=== PATIENT | male | born 1965 | race Two or more races ===

== ENCOUNTER 2018-10-05 22:43 | Inpatient (IN) | payer OTHER ==
[~2018-10-05] VITALS: Ht 188 cm; Wt 237.2 kg
[2018-10-06] VITALS (7 sets, daily range): BP systolic 112–168; BP diastolic 63–96
--- NOTE | 2018-10-06 02:02 | RAD ---
CT head without contrast. CT cervical spine without contrast. PQRS statement: CT scans at this facility use dose reduction including either automated exposure control, iterative reconstructions, and /or weight based radiation dosing via mA and kV modification when appropriate to reduce radiation dose to as low as reasonably achievable. HISTORY: Head pain, neck pain, status post fall. TECHNIQUE: Noncontrast CT imaging of the head and cervical spine multiplanar reconstructions. CT head findings: No intracranial hemorrhage, mass, hydrocephalus or infarction. No acute ischemic changes. Right frontoparietal soft tissue swelling and a small 3 cm hematoma the vertex. Orbits, mastoids, paranasal sinuses and bones are unremarkable. IMPRESSION: No acute intracranial CT abnormality. Scalp hematoma. No skull fracture. CT cervical spine findings: Craniocervical junction intact. Cervical vertebral body height and alignment intact. There is an acute traumatic vertical oriented fracture of the anterior C2 vertebral body, no fracture of the dens. Separately there is a hairline acute traumatic fracture of the right C2 pedicle which disrupts the medial wall of the foramen transversarium without distraction, involvement of the foramen could increase the probability of a vertebral artery injury. Remainder of the cervical spine is intact. 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 Bridging anterior posterior thick cervical longitudinal ligament ossifications may be a combination of ankylosing spondylitis as well as ossification of the posterior longitudinal ligament and diffuse idiopathic skeletal hyperostosis, with multilevel severe spinal canal stenoses. Multilevel neural foraminal stenoses due to uncovertebral spurs also present. Lung apices and paraspinal tissues are unremarkable. IMPRESSION: Acute traumatic fracture of the C2 vertebra as described above. Critical results called to Dr. Olson at 1:55 AM October 06, 2018. Electronically signed by: Castillo Santos MD (10/06/2018 2:00 AM) [facility]
--- NOTE | 2018-10-06 02:07 | PHYS DOC ---
Past Medical History Past Medical History: DVT Past Surgical History: Cholecystectomy, Tonsillectomy Additional Past Surgical Histo: NECK Additional Information: Nonsmoker Alcohol Use: None Drug Use: None Adult General Chief Complaint Chief Complaint: MECHANICAL FALL HPI HPI 53 y/o male presents as transfer from [facility] in [place], [place] with report of need for CT head/cervical spine. Patient apparently had a mechanical slip and fall on his driveway at his home at noon. Reports striking his head and left knee. Reports developed some swelling and pain to top of his head. Reports concern given patient is currently on Xarelto for chronic RLE DVT. Patient denies LOC. Reports some neck pain which he attributes to known ankylosing spondylitis. Reports has been ambulatory without difficulty. Denies other injury. Patient was initially evaluated in the ED at [facility] and received a CXR without acute process. Patient was unable to receive CT imaging there as unable to accommodate patient's current weight. Patient sent to [facility] as he is an employee of [employer]. Patient elected to transfer by private vehicle. Patient was advised to wear a c -collar prior to transport which patient refused. Review of Systems Review of Systems Constitutional: Denies fever or chills [] Eyes: Denies change in visual acuity, redness, or eye pain [] HENT: Denies nasal congestion or epistaxis Respiratory: Denies cough or shortness of breath [] Cardiovascular: Reports some chest discomfort, denies palpitations GI: Denies abdominal pain, nausea, vomiting, or diarrhea [] : Denies dysuria or hematuria [] Musculoskeletal: Reports neck pain, denies back pain Integument: Reports head contusion, denies laceration Neurologic: Denies headache, focal weakness or sensory changes [] Complete systems were reviewed and found to be within normal limits, except as documented in this note. Current Medications Current Medications Current Medications Medications (Trade) Dose Ordered Sig/Cheng Start Time Stop Time Status Last Admin Dose Admin Acetaminophen/ Hydrocodone Bitart (Lortab 10/325) 1 tab 1X ONCE 10/06/18 02:15 10/06/18 02:16 UNV Fentanyl Citrate (Fentanyl 2ml Vial) 50 mcg PRN Q2HR PRN 10/06/18 02:45 Info (CONTRAST GIVEN -- Rx MONITORING) 1 each PRN DAILY PRN 10/06/18 04:45 10/08/18 04:44 Iohexol (Omnipaque 350 Mg/ml) 100 ml 1X ONCE 10/06/18 04:45 10/06/18 04:46 DC 10/06/18 05:20 100 ML Ondansetron HCl (Zofran) 4 mg PRN Q8HRS PRN 10/06/18 02:45 10/07/18 02:44 Sodium Chloride 1,000 ml @ 1,000 mls/hr 1X ONCE 10/06/18 02:45 10/06/18 03:44 DC 10/06/18 03:15 1,000 MLS/HR Allergies Allergies Allergies Coded Allergies Type Severity Reaction Last Updated Verified No Known Drug Allergies 10/05/18 No Physical Exam Physical Exam Constitutional: Well developed, well nourished, no acute distress, non-toxic appearance. [] HENT: Normocephalic, atraumatic, bilateral TMs normal, oropharynx moist, nose normal. [] Eyes: PERRL, EOMI, conjunctiva normal, no discharge. [] Neck: No midline tenderness, supple Cardiovascular: Heart rate regular rhythm, no murmur [] Lungs & Thorax: Bilateral breath sounds clear to auscultation [] Abdomen: Soft, no tenderness, pelvis stable and nontender Skin: Warm, dry, no erythema, contusion noted to top of scalp Back: No midline tenderness, no CVA tenderness. [] Extremities: No tenderness,, ROM intact, no edema. [] Neurologic: Alert and oriented X 3, normal motor function, normal sensory function, no focal deficits noted. [] Psychologic: Affect normal, judgement normal, mood normal. [] Current Patient Data Vital Signs Vital Signs Date Time Temp Pulse Resp B/P (MAP) Pulse Ox O2 Delivery O2 Flow Rate FiO2 10/06/18 03:14 20 99 Room Air 10/05/18 23:38 98.3 73 163/106 (125) 98.3 Lab Values Laboratory Tests Test 10/06/18 02:15 10/06/18 03:03 10/06/18 04:20 Urine Collection Type Unknown Urine Color Yellow Urine Clarity Clear Urine pH 6.0 Urine Specific Jackson 1.025 Urine Protein Negative mg/dL (NEG-TRACE) Urine Glucose (UA) Negative mg/dL (NEG) Urine Ketones (Stick) Negative mg/dL (NEG) Urine Blood Small (NEG) Urine Nitrite Negative (NEG) Urine Bilirubin Small (NEG) Urine Urobilinogen Dipstick 1.0 mg/dL (0.2 mg/dL) Urine Leukocyte Esterase Negative (NEG) Urine RBC 1-2 /HPF (0-2) Urine WBC Occ /HPF (0-4) Urine Squamous Epithelial Cells Occ /LPF Urine Bacteria 0 /HPF (0-FEW) Urine Mucus Mod /LPF White Blood Count 10.9 x10^3/uL (4.0-11.0) Red Blood Count 5.11 x10^6/uL (4.30-5.70) Hemoglobin 16.3 g/dL (13.0-17.5) Hematocrit 48.9 % (39.0-53.0) Mean Corpuscular Volume 96 fL (79-100) Mean Corpuscular Hemoglobin 32 pg (25-35) Mean Corpuscular Hemoglobin Concent 33 g/dL (31-37) Red Cell Distribution Width 13.9 % (11.5-14.5) Platelet Count 274 x10^3/uL (140-400) Neutrophils (%) (Auto) 75 % (31-73) H Lymphocytes (%) (Auto) 15 % (24-48) L Monocytes (%) (Auto) 8 % (0-9) Eosinophils (%) (Auto) 1 % (0-3) Basophils (%) (Auto) 1 % (0-3) Neutrophils # (Auto) 8.2 x10^3uL (1.8-7.7) H Lymphocytes # (Auto) 1.6 x10^3/uL (1.0-4.8) Monocytes # (Auto) 0.9 x10^3/uL (0.0-1.1) Eosinophils # (Auto) 0.1 x10^3/uL (0.0-0.7) Basophils # (Auto) 0.1 x10^3/uL (0.0-0.2) Prothrombin Time 14.2 SEC (11.7-14.0) H Prothrombin Time INR 1.1 (0.8-1.1) PTT 34 SEC (24-38) Sodium Level 140 mmol/L (136-145) Potassium Level 3.8 mmol/L (3.5-5.1) Chloride Level 104 mmol/L (98-107) Carbon Dioxide Level 28 mmol/L (21-32) Anion Gap 8 (6-14) Blood Urea Nitrogen 7 mg/dL (8-26) L Creatinine 1.0 mg/dL (0.7-1.3) Estimated GFR (Cockcroft-Gault) 78.5 BUN/Creatinine Ratio 7 (6-20) Glucose Level 108 mg/dL (70-99) H Calcium Level 8.9 mg/dL (8.5-10.1) Magnesium Level 2.0 mg/dL (1.8-2.4) Total Bilirubin 1.6 mg/dL (0.2-1.0) H Aspartate Amino Transferase (AST) 29 U/L (15-37) Alanine Aminotransferase (ALT) 28 U/L (16-63) Alkaline Phosphatase 130 U/L (46-116) H Total Protein 7.9 g/dL (6.4-8.2) Albumin 3.4 g/dL (3.4-5.0) Albumin/Globulin Ratio 0.8 (1.0-1.7) L Laboratory Tests 10/06/18 03:03 Laboratory Tests 10/06/18 04:20 EKG EKG @0642 NSR at 76bpm, NO ST elevation Radiology/Procedures Radiology/Procedures PROCEDURE: CT HEAD AND CERVICAL SPINE WO CT head without contrast. CT cervical spine without contrast. PQRS statement: CT scans at this facility use dose reduction including either automated exposure control, iterative reconstructions, and /or weight based radiation dosing via mA and kV modification when appropriate to reduce radiation dose to as low as reasonably achievable. HISTORY: Head pain, neck pain, status post fall. TECHNIQUE: Noncontrast CT imaging of the head and cervical spine multiplanar reconstructions. CT head findings: No intracranial hemorrhage, mass, hydrocephalus or infarction. No acute ischemic changes. Right frontoparietal soft tissue swelling and a small 3 cm hematoma the vertex. Orbits, mastoids, paranasal sinuses and bones are unremarkable. IMPRESSION: No acute intracranial CT abnormality. Scalp hematoma. No skull fracture. CT cervical spine findings: Craniocervical junction intact. Cervical vertebral body height and alignment intact. There is an acute traumatic vertical oriented fracture of the anterior C2 vertebral body, no fracture of the dens. Separately there is a hairline acute traumatic fracture of the right C2 pedicle which disrupts the medial wall of the foramen transversarium without distraction, involvement of the foramen could increase the probability of a vertebral artery injury. Remainder of the cervical spine is intact. 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 Bridging anterior posterior thick cervical longitudinal ligament ossifications may be a combination of ankylosing spondylitis as well as ossification of the posterior longitudinal ligament and diffuse idiopathic skeletal hyperostosis, with multilevel severe spinal canal stenoses. Multilevel neural foraminal stenoses due to uncovertebral spurs also present. Lung apices and paraspinal tissues are unremarkable. IMPRESSION: Acute traumatic fracture of the C2 vertebra as described above. Critical results called to Dr. Giron at 1:55 AM October 06, 2018. Electronically signed by: Castillo Santos MD (10/06/2018 2:00 AM) [facility] PROCEDURE: CT ANGIOGRAPHY HEAD AND NECK CT angiography head and neck with contrast HISTORY: C2 fracture with increased probability of right vertebral artery injury. PQRS statement: CT scans at this facility use dose reduction including either automated exposure control, iterative reconstructions, and /or weight based radiation dosing via mA and kV modification when appropriate to reduce radiation dose to as low as reasonably achievable. Stenosis calculations for CT, MR, and conventional angiography are based upon measurements of the distal ICA diameter in accordance with the NASCET methodology. Stenosis calculations for carotid ultrasound studies are derived from validated velocity criteria which are known to correlate with the NASCET methodology. TECHNIQUE: Helical CT imaging of the head and neck with 3-D MIP and volume reconstructions of the arteries characterize vascular anatomy and pathology with 100 mL Omnipaque 350 intravenous contrast. Neck findings: Common ostium of the left common carotid and innominate arteries from the aortic arch. Left vertebral artery is mildly dominant. No plaque, dissection, thrombosis, aneurysm, stenosis or occlusion of the vertebral arteries including the right vertebral artery is it crosses the C2 transverse foramen patent. Nondisplaced fracture. Retropharyngeal carotid arteries. Tiny calcified plaque left carotid bifurcation. No vessel irregularity, thrombus, dissection, aneurysm, stenosis or occlusion of the carotid arteries in the neck. C2 vertebral fracture again demonstrated. Intracranial findings: No plaque, vessel irregularity, thrombus, dissection, aneurysm, stenosis or occlusion. Scalp hematoma at the vertex and right frontal scalp soft tissue swelling again demonstrated. IMPRESSION: Essentially normal CT angiography head and neck. Specifically there is no vertebral artery dissection, aneurysm or thrombosis evident at the area of C2 cervical fracture. Electronically signed by: Castillo Santos MD (10/06/2018 5:59 AM) [facility] Course & Med Decision Making Course & Med Decision Making Pertinent Labs and Imaging studies reviewed. (See chart for details) Patient presents with report of mechanical trip and fall. Previously seen at [facility] in [place], [place] who initially evaluated the patient. Patient currently treated with Xarelto. Scalp hematoma noted. CT scanner table unable to accommodate patient's weight there. Patient transferred by private vehicle without C-collar due to patient refusal for collar and/or EMS transfer. CT head/cervical spine obtained with findings of C2 body fracture. C-collar placed. Discussed case with Dr. Machado (neurosurg ) who evaluated CT images. Requests CTA head/neck to evaluate for vertebral artery involvement. CTA without acute process. Patient requiring admission for further evaluation and treatment. Discussed with Dr. Mena (hospitalist) who is in agreement with admission. Dr. Mena requests consultation to (trauma surgery) who is in agreement with consultation. Discussed findings and plan with patient and family, who acknowledge understanding and agreement. Dragon Disclaimer Dragon Disclaimer This electronic medical record was generated, in whole or in part, using a voice recognition dictation system. Departure Departure Impression: Primary Impression: C2 cervical fracture Disposition: 09 ADMITTED INPATIENT Admitting Physician: Judah Vila Condition: GUARDED Referrals: UNKNOWN PCP NAME (PCP) Critical Care Time Critical care time was 30 minutes which includes time at bedside, spent in discussion of patient's care with specialists and/or family members, with interpretation of laboratory and/or radiological studies and is exclusive of procedures. Problem Qualifiers Primary Impression: C2 cervical fracture Encounter type: initial encounter Fracture type: closed Fracture morphology : unspecified fracture morphology Fracture alignment: nondisplaced Qualified Codes: S12.101A - Unspecified nondisplaced fracture of second cervical vertebra, initial encounter for closed fracture LEANDRA GIRON DO Oct 06, 2018 02:07
[2018-10-06] MEDS ORDERED: HYDROcodone/APAP 10/325 1 TAB TABLET PO ONE (02:15)
[2018-10-06] MEDS ORDERED: IV NORMAL SALINE 1000ML BAG 1,000 ML IV ONE ×2 (02:30→02:45)
[2018-10-06] MEDS ORDERED: fentaNYL PF VIAL 100 MCG/2 ML VIAL IV ONE (02:30)
[2018-10-06] MEDS ORDERED: ONDANSETRON PF 4 MG/2 ML VIAL. IV PRN ×2 (02:45→11:15)
[2018-10-06 02:57] LABS: BILIRUBIN,URINE SMALL (NEG); CLARITY,URINE CLEAR; COLOR,URINE YELLOW; NITRITE,URINE NEGATIVE (NEG); PROTEIN,URINE NEGATIVE (NEG-TRACE)
[2018-10-06 03:06] LABS: BACTERIA,URINE 0 /HPF (0-FEW); SQUAMOUS EPITHELIAL CELL,UR OCC /LPF; WBC,URINE OCC /HPF (0-4)
[2018-10-06 03:32] LABS: BASO # 0.1 x10^3/uL (0.0-0.2); BASO % 1 % (0-3); EOS # 0.1 x10^3/uL (0.0-0.7); EOS % 1 % (0-3); HEMATOCRIT 48.9 % (39.0-53.0); HEMOGLOBIN 16.3 g/dL (13.0-17.5); LYMPH # 1.6 x10^3/uL (1.0-4.8); LYMPH % 15 % (24-48); MEAN CORPUSCULAR HEMOGLOBIN 32 pg (25-35); MEAN CORPUSCULAR HGB CONC 33 g/dL (31-37); MEAN CORPUSCULAR VOLUME 96 fL (79-100); MONO # 0.9 x10^3/uL (0.0-1.1); MONO % 8 % (0-9); NEUT # 8.2 x10^3uL (1.8-7.7); NEUT % 75 % (31-73); PLATELET COUNT 274 x10^3/uL (140-400); RED BLOOD COUNT 5.11 x10^6/uL (4.30-5.70); RED CELL DISTRIBUTION WIDTH 13.9 % (11.5-14.5); WHITE BLOOD COUNT 10.9 x10^3/uL (4.0-11.0)
[2018-10-06 03:42] LABS: PROTHROMBIN TIME PATIENT 14.2 SEC (11.7-14.0)
[2018-10-06 04:36] LABS: CALCIUM 8.9 mg/dL (8.5-10.1); GFR 78.5; POTASSIUM 3.8 mmol/L (3.5-5.1)
[2018-10-06 04:41] LABS: ALBUMIN 3.4 g/dL (3.4-5.0); ALBUMIN/GLOBULIN RATIO 0.8 (1.0-1.7); TOTAL BILIRUBIN 1.6 mg/dL (0.2-1.0); TOTAL PROTEIN 7.9 g/dL (6.4-8.2)
[2018-10-06] MEDS ORDERED: IOHEXOL 350 MG/ML 100 ML VIAL. IV ONE (04:45)
[2018-10-06] MEDS ORDERED: CONTRAST GIVEN. MC PRN (04:45)
--- NOTE | 2018-10-06 06:02 | RAD ---
CT angiography head and neck with contrast HISTORY: C2 fracture with increased probability of right vertebral artery injury. PQRS statement: CT scans at this facility use dose reduction including either automated exposure control, iterative reconstructions, and /or weight based radiation dosing via mA and kV modification when appropriate to reduce radiation dose to as low as reasonably achievable. Stenosis calculations for CT, MR, and conventional angiography are based upon measurements of the distal ICA diameter in accordance with the NASCET methodology. Stenosis calculations for carotid ultrasound studies are derived from validated velocity criteria which are known to correlate with the NASCET methodology. TECHNIQUE: Helical CT imaging of the head and neck with 3-D MIP and volume reconstructions of the arteries characterize vascular anatomy and pathology with 100 mL Omnipaque 350 intravenous contrast. Neck findings: Common ostium of the left common carotid and innominate arteries from the aortic arch. Left vertebral artery is mildly dominant. No plaque, dissection, thrombosis, aneurysm, stenosis or occlusion of the vertebral arteries including the right vertebral artery is it crosses the C2 transverse foramen patent. Nondisplaced fracture. Retropharyngeal carotid arteries. Tiny calcified plaque left carotid bifurcation. No vessel irregularity, thrombus, dissection, aneurysm, stenosis or occlusion of the carotid arteries in the neck. C2 vertebral fracture again demonstrated. Intracranial findings: No plaque, vessel irregularity, thrombus, dissection, aneurysm, stenosis or occlusion. Scalp hematoma at the vertex and right frontal scalp soft tissue swelling again demonstrated. IMPRESSION: Essentially normal CT angiography head and neck. Specifically there is no vertebral artery dissection, aneurysm or thrombosis evident at the area of C2 cervical fracture. Electronically signed by: Castillo Santos MD (10/06/2018 5:59 AM) [facility]
[2018-10-06] MEDS: fentaNYL PF VIAL 100 MCG/2 ML VIAL IV PRN ×2 (07:39→13:01)
--- NOTE | 2018-10-06 10:01 | PDOC1 ---
History and Physical Date of Admission Date of Admission DATE: 10/06/18 TIME: 09:59 Identification/Chief Complaint Chief Complaint SEEN IN ER, Patient apparently had a mechanical slip and fall on his driveway at his home at noon 10/05 . Reports, falling forward striking his head on garage wall and left knee NO LOC . Reports developed some swelling and pain to top of his head. Reports concern given patient is currently on Xarelto for chronic RLE DVT IN 2017 . Reports neck pain which he attributed to known ankylosing spondylitis. has been ambulatory without difficulty. Denies other injury. 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 Patient was initially evaluated in the ED at [facility] and had a CXR without acute process. Patient was unable to have CT imaging there as unable to accommodate patient' s current weight > 500 lbs. Patient sent to [facility] here as he is an employee of [employer]. Past Medical History Past Medical History Past Medical History Past Medical History Past Medical History: DVT Past Surgical History: Cholecystectomy, Tonsillectomy Additional Past Surgical Histo: NECK Additional Information: Nonsmoker Alcohol Use: None Drug Use: None Pulmonary: No pertinent hx, Other (MCKENZIE) Heme/Onc: Other (DVT RIGHT LEG 2017 ON XARELTO) Hepatobiliary: No pertinent hx Psych: No pertinent hx Infectious disease: No pertinent hx Dermatology: Other (VENOUS INSUFF BOTH LOWER LEGS, CHRONIC) Family History Family History: Heart Disease, Hypertension Social History Smoke: No ALCOHOL: none Drugs: None Current Problem List Problem List Problems Medical Problems: (1) C2 cervical fracture Status: Acute Current Medications Current Medications Current Medications Acetaminophen/ Hydrocodone Bitart (Lortab 10/325) 1 tab 1X ONCE PO ; Start at 02:15; Stop 10/06/18 at 02:16; Status UNV Sodium Chloride 1,000 ml @ 100 mls/hr 1X ONCE IV Last administered on at 06:15; Start 10/06/18 at 02:30; Stop 10/06/18 at 12:29 Fentanyl Citrate (Fentanyl 2ml Vial) 50 mcg 1X ONCE IV Last administered on at 03:14; Start 10/06/18 at 02:30; Stop 10/06/18 at 02:32; Status DC Sodium Chloride 1,000 ml @ 1,000 mls/hr 1X ONCE IV Last administered on at 03:15; Start 10/06/18 at 02:45; Stop 10/06/18 at 03:44; Status DC Ondansetron HCl (Zofran) 4 mg PRN Q8HRS PRN IV NAUSEA/VOMITING; Start 10/06/18 at 02:45; Stop 10/07/18 at 02:44 Fentanyl Citrate (Fentanyl 2ml Vial) 50 mcg PRN Q2HR PRN IV PAIN Last administered on 10/06/18at 07:39; Start 10/06/18 at 02:45 Iohexol (Omnipaque 350 Mg/ml) 100 ml 1X ONCE IV Last administered on at 05:20; Start 10/06/18 at 04:45; Stop 10/06/18 at 04:46; Status DC Info (CONTRAST GIVEN -- Rx MONITORING) 1 each PRN DAILY PRN MC SEE COMMENTS; Start 10/06/18 at 04:45; Stop 10/08/18 at 04:44 Allergies Allergies: Coded Allergies: No Known Drug Allergies (Unverified , 10/05/18) ROS Review of System Review of Systems Review of Systems Constitutional: Denies fever or chills [] Eyes: Denies change in visual acuity, redness, or eye pain [] HENT: Denies nasal congestion or epistaxis Respiratory: Denies cough or shortness of breath [] Cardiovascular: Reports some chest discomfort WHEN HE FELL contusing his chest wall anterior aspect, denies palpitations GI: Denies abdominal pain, nausea, vomiting, or diarrhea [] : Denies dysuria or hematuria [] Musculoskeletal: Reports neck pain, denies back pain Integument: Reports head contusion, denies laceration Neurologic: Denies headache, focal weakness or sensory changes denies hx neuropathy, or falls Prior to this event [] 14 pt systems were reviewed and found to be within normal limits, except as documented Physical Exam Physical Exam Physical Exam Physical Exam Constitutional: Well developed, no acute distress, non-toxic appearance. [] HENT: Normocephalic, atraumatic, bilateral TMs normal, oropharynx moist, nose normal. [] Eyes: PERRL, EOMI, conjunctiva normal, no discharge. [] Neck: in collar Cardiovascular: Heart rate regular rhythm, no murmur [] Lungs & Thorax: Bilateral breath sounds clear to auscultation [] Abdomen: Soft, no tenderness, pelvis stable and nontender Skin: Warm, dry, no erythema, contusion noted to top of scalp Back: No midline tenderness, no CVA tenderness. [] Extremities: No tenderness,, ROM intact, no edema. [] Neurologic: Alert and oriented X 3, normal motor function, normal sensory function, no focal deficits noted. good equal contracts analyst bilaterally[] Psychologic: Affect normal, judgement normal, mood normal. [] General: Alert, Oriented X3, Cooperative Lungs: Clear to auscultation Heart: RRR Abdomen: Soft, Other (extreme obesity) Rectal Exam: not examined PELVIC: Examination not indicated Extremities: No cyanosis, Other (chronic venous insuff both lower legs) Neuro: Normal speech, Cranial nerves 3-12 NL Psych/Mental Status: Mental status NL, Mood NL Vitals Vitals Vital Signs Date Time Temp Pulse Resp B/P (MAP) Pulse Ox O2 Delivery O2 Flow Rate FiO2 10/06/18 08:09 18 10/06/18 07:41 82 100 10/06/18 03:14 Room Air 10/05/18 23:38 98.3 163/106 (125) 98.3 Labs Labs Laboratory Tests Test 10/06/18 02:15 10/06/18 03:03 10/06/18 04:20 10/06/18 04:30 Urine Collection Type Unknown Urine Color Yellow Urine Clarity Clear Urine pH 6.0 Urine Specific [place] 1.025 Urine Protein Negative mg/dL (NEG-TRACE) Urine Glucose (UA) Negative mg/dL (NEG) Urine Ketones (Stick) Negative mg/dL (NEG) Urine Blood Small (NEG) Urine Nitrite Negative (NEG) Urine Bilirubin Small (NEG) Urine Urobilinogen Dipstick 1.0 mg/dL (0.2 mg/dL) Urine Leukocyte Esterase Negative (NEG) Urine RBC 1-2 /HPF (0-2) Urine WBC Occ /HPF (0-4) Urine Squamous Epithelial Cells Occ /LPF Urine Bacteria 0 /HPF (0-FEW) Urine Mucus Mod /LPF White Blood Count 10.9 x10^3/uL (4.0-11.0) Red Blood Count 5.11 x10^6/uL (4.30-5.70) Hemoglobin 16.3 g/dL (13.0-17.5) Hematocrit 48.9 % (39.0-53.0) Mean Corpuscular Volume 96 fL (79-100) Mean Corpuscular Hemoglobin 32 pg (25-35) Mean Corpuscular Hemoglobin Concent 33 g/dL (31-37) Red Cell Distribution Width 13.9 % (11.5-14.5) Platelet Count 274 x10^3/uL (140-400) Neutrophils (%) (Auto) 75 % (31-73) Lymphocytes (%) (Auto) 15 % (24-48) Monocytes (%) (Auto) 8 % (0-9) Eosinophils (%) (Auto) 1 % (0-3) Basophils (%) (Auto) 1 % (0-3) Neutrophils # (Auto) 8.2 x10^3uL (1.8-7.7) Lymphocytes # (Auto) 1.6 x10^3/uL (1.0-4.8) Monocytes # (Auto) 0.9 x10^3/uL (0.0-1.1) Eosinophils # (Auto) 0.1 x10^3/uL (0.0-0.7) Basophils # (Auto) 0.1 x10^3/uL (0.0-0.2) Prothrombin Time 14.2 SEC (11.7-14.0) Prothromb Time International Ratio 1.1 (0.8-1.1) Activated Partial Thromboplast Time 34 SEC (24-38) Sodium Level 140 mmol/L (136-145) Potassium Level 3.8 mmol/L (3.5-5.1) Chloride Level 104 mmol/L (98-107) Carbon Dioxide Level 28 mmol/L (21-32) Anion Gap 8 (6-14) Blood Urea Nitrogen 7 mg/dL (8-26) Creatinine 1.0 mg/dL (0.7-1.3) Estimated GFR (Cockcroft-Gault) 78.5 BUN/Creatinine Ratio 7 (6-20) Glucose Level 108 mg/dL (70-99) Calcium Level 8.9 mg/dL (8.5-10.1) Magnesium Level 2.0 mg/dL (1.8-2.4) Total Bilirubin 1.6 mg/dL (0.2-1.0) Aspartate Amino Transf (AST/SGOT) 29 U/L (15-37) Alanine Aminotransferase (ALT/SGPT) 28 U/L (16-63) Alkaline Phosphatase 130 U/L (46-116) Total Protein 7.9 g/dL (6.4-8.2) Albumin 3.4 g/dL (3.4-5.0) Albumin/Globulin Ratio 0.8 (1.0-1.7) Creatine Kinase 593 U/L (39-308) Creatine Kinase MB (Mass) 3.5 ng/mL (0.0-3.6) Creatine Kinase MB Relative Index 0.6 % (0-4) Troponin I Quantitative < 0.017 ng/mL (0.000-0.055) Laboratory Tests Test 10/06/18 02:15 10/06/18 03:03 10/06/18 04:20 10/06/18 04:30 Urine Collection Type Unknown Urine Color Yellow Urine Clarity Clear Urine pH 6.0 Urine Specific [place] 1.025 Urine Protein Negative mg/dL (NEG-TRACE) Urine Glucose (UA) Negative mg/dL (NEG) Urine Ketones (Stick) Negative mg/dL (NEG) Urine Blood Small (NEG) Urine Nitrite Negative (NEG) Urine Bilirubin Small (NEG) Urine Urobilinogen Dipstick 1.0 mg/dL (0.2 mg/dL) Urine Leukocyte Esterase Negative (NEG) Urine RBC 1-2 /HPF (0-2) Urine WBC Occ /HPF (0-4) Urine Squamous Epithelial Cells Occ /LPF Urine Bacteria 0 /HPF (0-FEW) Urine Mucus Mod /LPF White Blood Count 10.9 x10^3/uL (4.0-11.0) Red Blood Count 5.11 x10^6/uL (4.30-5.70) Hemoglobin 16.3 g/dL (13.0-17.5) Hematocrit 48.9 % (39.0-53.0) Mean Corpuscular Volume 96 fL (79-100) Mean Corpuscular Hemoglobin 32 pg (25-35) Mean Corpuscular Hemoglobin Concent 33 g/dL (31-37) Red Cell Distribution Width 13.9 % (11.5-14.5) Platelet Count 274 x10^3/uL (140-400) Neutrophils (%) (Auto) 75 % (31-73) Lymphocytes (%) (Auto) 15 % (24-48) Monocytes (%) (Auto) 8 % (0-9) Eosinophils (%) (Auto) 1 % (0-3) Basophils (%) (Auto) 1 % (0-3) Neutrophils # (Auto) 8.2 x10^3uL (1.8-7.7) Lymphocytes # (Auto) 1.6 x10^3/uL (1.0-4.8) Monocytes # (Auto) 0.9 x10^3/uL (0.0-1.1) Eosinophils # (Auto) 0.1 x10^3/uL (0.0-0.7) Basophils # (Auto) 0.1 x10^3/uL (0.0-0.2) Prothrombin Time 14.2 SEC (11.7-14.0) Prothromb Time International Ratio 1.1 (0.8-1.1) Activated Partial Thromboplast Time 34 SEC (24-38) Sodium Level 140 mmol/L (136-145) Potassium Level 3.8 mmol/L (3.5-5.1) Chloride Level 104 mmol/L (98-107) Carbon Dioxide Level 28 mmol/L (21-32) Anion Gap 8 (6-14) Blood Urea Nitrogen 7 mg/dL (8-26) Creatinine 1.0 mg/dL (0.7-1.3) Estimated GFR (Cockcroft-Gault) 78.5 BUN/Creatinine Ratio 7 (6-20) Glucose Level 108 mg/dL (70-99) Calcium Level 8.9 mg/dL (8.5-10.1) Magnesium Level 2.0 mg/dL (1.8-2.4) Total Bilirubin 1.6 mg/dL (0.2-1.0) Aspartate Amino Transf (AST/SGOT) 29 U/L (15-37) Alanine Aminotransferase (ALT/SGPT) 28 U/L (16-63) Alkaline Phosphatase 130 U/L (46-116) Total Protein 7.9 g/dL (6.4-8.2) Albumin 3.4 g/dL (3.4-5.0) Albumin/Globulin Ratio 0.8 (1.0-1.7) Creatine Kinase 593 U/L (39-308) Creatine Kinase MB (Mass) 3.5 ng/mL (0.0-3.6) Creatine Kinase MB Relative Index 0.6 % (0-4) Troponin I Quantitative < 0.017 ng/mL (0.000-0.055) Images Images CT angiography head and neck with contrast HISTORY: C2 fracture with increased probability of right vertebral artery injury. PQRS statement: CT scans at this facility use dose reduction including either automated exposure control, iterative reconstructions, and /or weight based radiation dosing via mA and kV modification when appropriate to reduce radiation dose to as low as reasonably achievable. Stenosis calculations for CT, MR, and conventional angiography are based upon measurements of the distal ICA diameter in accordance with the NASCET methodology. Stenosis calculations for carotid ultrasound studies are derived from validated velocity criteria which are known to correlate with the NASCET methodology. TECHNIQUE: Helical CT imaging of the head and neck with 3-D MIP and volume reconstructions of the arteries characterize vascular anatomy and pathology with 100 mL Omnipaque 350 intravenous contrast. Neck findings: Common ostium of the left common carotid and innominate arteries from the aortic arch. Left vertebral artery is mildly dominant. No plaque, dissection, thrombosis, aneurysm, stenosis or occlusion of the vertebral arteries including the right vertebral artery is it crosses the C2 transverse foramen patent. Nondisplaced fracture. Retropharyngeal carotid arteries. Tiny calcified plaque left carotid bifurcation. No vessel irregularity, thrombus, dissection, aneurysm, stenosis or occlusion of the carotid arteries in the neck. C2 vertebral fracture again demonstrated. Intracranial findings: No plaque, vessel irregularity, thrombus, dissection, aneurysm, stenosis or occlusion. Scalp hematoma at the vertex and right frontal scalp soft tissue swelling again demonstrated. IMPRESSION: Essentially normal CT angiography head and neck. Specifically there is no vertebral artery dissection, aneurysm or thrombosis evident at the area of C2 cervical fracture. Electronically signed by: Janet Santos MD (10/06/2018 5:59 AM) [facility] DICTATED and SIGNED BY: JANET SANTOS MD DATE: 10/06/18 0559 STATUS: REG ER ORD. PHYSICIAN: LEANDRA GIRON DO REASON: head/neck pain s/p fall, hx of xarelto use PROCEDURE: CT HEAD AND CERVICAL SPINE WO CT head without contrast. CT cervical spine without contrast. PQRS statement: CT scans at this facility use dose reduction including either automated exposure control, iterative reconstructions, and /or weight based radiation dosing via mA and kV modification when appropriate to reduce radiation dose to as low as reasonably achievable. HISTORY: Head pain, neck pain, status post fall. TECHNIQUE: Noncontrast CT imaging of the head and cervical spine multiplanar reconstructions. CT head findings: No intracranial hemorrhage, mass, hydrocephalus or infarction. No acute ischemic changes. Right frontoparietal soft tissue swelling and a small 3 cm hematoma the vertex. Orbits, mastoids, paranasal sinuses and bones are unremarkable. IMPRESSION: No acute intracranial CT abnormality. Scalp hematoma. No skull fracture. CT cervical spine findings: Craniocervical junction intact. Cervical vertebral body height and alignment intact. There is an acute traumatic vertical oriented fracture of the anterior C2 vertebral body, no fracture of the dens. Separately there is a hairline acute traumatic fracture of the right C2 pedicle which disrupts the medial wall of the foramen transversarium without distraction, involvement of the foramen could increase the probability of a vertebral artery injury. Remainder of the cervical spine is intact. 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 Bridging anterior posterior thick cervical longitudinal ligament ossifications may be a combination of ankylosing spondylitis as well as ossification of the posterior longitudinal ligament and diffuse idiopathic skeletal hyperostosis, with multilevel severe spinal canal stenoses. Multilevel neural foraminal stenoses due to uncovertebral spurs also present. Lung apices and paraspinal tissues are unremarkable. IMPRESSION: Acute traumatic fracture of the C2 vertebra as described above. Critical results called to Dr. Giron at 1:55 AM October 06, 2018. Electronically signed by: Janet Santos MD (10/06/2018 2:00 AM) [facility] VTE Prophylaxis Ordered VTE Prophylaxis Devices: Contraindicated VTE Pharmacological Prophylaxi: Yes Assessment/Plan Assessment/Plan IMPRESSION: 1.Acute traumatic fracture of the C2 vertebra 2.normal CT angiography head and neck. Specifically there is no vertebral artery dissection, aneurysm or thrombosis evident at the area of C2 cervical fracture. No plaque, dissection, thrombosis, aneurysm, stenosis or occlusion of the vertebral arteries including the right vertebral artery is it crosses the C2 transverse foramen patent. Nondisplaced fracture. Retropharyngeal carotid arteries. Tiny calcified plaque left carotid bifurcation. No vessel irregularity, thrombus, dissection, aneurysm, stenosis or occlusion of the carotid arteries in the neck. C2 vertebral fracture again demonstrated. 3. ankylosing spondylitis as well as ossification of the posterior longitudinal ligament and diffuse idiopathic skeletal hyperostosis, with multilevel severe spinal canal stenoses. Multilevel neural foraminal stenoses due to uncovertebral spurs 4. extreme morbid obesity 5, hx DVT RIGHT LEG 2017 on xarelto 6. chest wall discomfort from acute fall 7. mild inc CPK, CHK Troponin i OK X 1 8. high fall risk 9. MCKENZIE 10. MILD Occiput contusion 11. hypertension, poor control plan 1. Consult neurosurgery 2. consult neurology 3. consult DR Collazo, trauma eval 4. neurochecks q 4 hrs 5. ICU BED 6. Ceiba collar 7. Bariatric bed 8. up with assist only 9. NPO until seen by neurosurgery today 10. ECHO 11. lisinopril 10 mg po now 12. hydralazine 10mg iv q 4 hrs prn bp support 37 min cc time LILLIAN LIU MD Oct 06, 2018 10:01
[2018-10-06] MEDS ORDERED: HYDROmorphone 2 MG/ML VIAL IV PRN (11:15)
[2018-10-06] MEDS ORDERED: guaiFENesin ORAL 200 MG/10 ML LIQUID. PO PRN (11:15)
[2018-10-06] MEDS ORDERED: ALBUTEROL SULFATE 2.5 MG/3 ML NEBU. NEB PRN (11:15)
[2018-10-06] MEDS ORDERED: ACETAMINOPHEN 325 MG TABLET. PO PRN (11:15)
[2018-10-06] MEDS ORDERED: 0.9 % SODIUM CHLORIDE 3ML DISP.SYRIN. IV PRN (11:15)
[2018-10-06] MEDS ORDERED: MAG HYDROX/ALUMINUM HYD/SIMETH 30 ML ORAL.SUSP PO PRN (11:15)
[2018-10-06] MEDS ORDERED: LORazepam 0.5 MG TABLET PO PRN (11:15)
[2018-10-06] MEDS ORDERED: hydrALAZINE 20 MG/ML VIAL. IVP PRN (11:15)
[2018-10-06] MEDS ORDERED: cloNIDine HCL 0.1 MG TABLET PO PRN (11:15)
[2018-10-06] MEDS ORDERED: LISINOPRIL 10 MG TABLET PO ONE (11:30)
--- NOTE | 2018-10-06 11:48 | PDOC2 ---
CONSULT Date of Consult Date of Consult DATE: 10/06/18 TIME: 11:40 History of Present Illness Reason for Visit: The patient is a 53 year old male who yesterday experienced a fall while in the garage. He was at standing height and fell forward striking the top portion of his head on a wagon wheel. He denies loss of consciousness, and felt that he momentarily "had the wind knocked out of me". After the fall he noticed pain in his head and neck. He did notice some chest discomfort as well which has improved. He reported to [facility] but was transferred to [facility] as the CT scanner was able to accommodate his weight. He is currently in a neck collar and has no other significant complaints. Past Medical History Pulmonary: No pertinent hx, Other (MCKENZIE) Heme/Onc: Other (DVT RIGHT LEG 2017 ON XARELTO) Hepatobiliary: No pertinent hx Psych: No pertinent hx Infectious disease: No pertinent hx Dermatology: Other (VENOUS INSUFF BOTH LOWER LEGS, CHRONIC) Past Surgical History Past Surgical History lap brian, tonsillectomy, plastic surgery on posterior neck Family History Family History: Heart Disease, Hypertension Social History No ALCOHOL: none Drugs: None Current Problem List Problem List Problems Medical Problems: (1) C2 cervical fracture Status: Acute Current Medications Current Medications Current Medications Acetaminophen/ Hydrocodone Bitart (Lortab 10/325) 1 tab 1X ONCE PO ; Start at 02:15; Stop 10/06/18 at 02:16; Status UNV Sodium Chloride 1,000 ml @ 100 mls/hr 1X ONCE IV Last administered on at 06:15; Start 10/06/18 at 02:30; Stop 10/06/18 at 12:29 Fentanyl Citrate (Fentanyl 2ml Vial) 50 mcg 1X ONCE IV Last administered on at 03:14; Start 10/06/18 at 02:30; Stop 10/06/18 at 02:32; Status DC Sodium Chloride 1,000 ml @ 1,000 mls/hr 1X ONCE IV Last administered on at 03:15; Start 10/06/18 at 02:45; Stop 10/06/18 at 03:44; Status DC Ondansetron HCl (Zofran) 4 mg PRN Q8HRS PRN IV NAUSEA/VOMITING; Start 10/06/18 at 02:45; Stop 10/07/18 at 02:44 Fentanyl Citrate (Fentanyl 2ml Vial) 50 mcg PRN Q2HR PRN IV PAIN Last administered on 10/06/18at 07:39; Start 10/06/18 at 02:45 Iohexol (Omnipaque 350 Mg/ml) 100 ml 1X ONCE IV Last administered on at 05:20; Start 10/06/18 at 04:45; Stop 10/06/18 at 04:46; Status DC Info (CONTRAST GIVEN -- Rx MONITORING) 1 each PRN DAILY PRN MC SEE COMMENTS; Start 10/06/18 at 04:45; Stop 10/08/18 at 04:44 Sodium Chloride (Normal Saline Flush 3ml) 3 ml QSHIFT PRN IV AFTER MEDS AND BLOOD DRAWS; Start 10/06/18 at 11:15 Sodium Chloride 1,000 ml @ 100 mls/hr Q10H IV ; Start 10/06/18 at 11:05 Ondansetron HCl (Zofran) 4 mg PRN Q4HRS PRN IV NAUSEA/VOMITING; Start 10/06/18 at 11:15 Acetaminophen (Tylenol) 650 mg PRN Q4HRS PRN PO TEMP OVER 100.4F OR MILD PAIN; Start 10/06/18 at 11:15 Al Hydroxide/Mg Hydroxide (Mylanta Plus Xs) 30 ml PRN DAILY PRN PO HEARTBURN / GAS; Start 10/06/18 at 11:15 Clonidine HCl (Catapres) 0.1 mg PRN Q6HRS PRN PO SBP>160 OR DBP>90; Start 10/06 at 11:15 Docusate Sodium (Colace) 100 mg PRN BID PRN PO CONSTIPATION; Start 10/06/18 at 11:15 Albuterol Sulfate (Ventolin Neb Soln) 2.5 mg PRN Q4HRS PRN NEB SHORTNESS OF BREATH; Start 10/06/18 at 11:15 Guaifenesin (Robitussin) 200 mg PRN Q4HRS PRN PO COUGH; Start 10/06/18 at 11:15 Lorazepam (Ativan) 0.5 mg PRN Q4HRS PRN PO ANXIETY / AGITATION; Start 10/06/18 at 11:15 Hydromorphone HCl (Dilaudid) 1 mg PRN Q2HRS PRN IV SEVERE PAIN; Start 10/06/18 at 11:15 Hydralazine HCl (Apresoline Inj) 10 mg PRN Q4HRS PRN IVP ELEVATED BP, SEE COMMENTS; Start 10/06/18 at 11:15 Lisinopril (Prinivil) 10 mg DAILY PO ; Start 10/07/18 at 09:00 Lisinopril (Prinivil) 10 mg 1X ONCE PO ; Start 10/06/18 at 11:30; Stop at 11:31; Status DC Allergies Allergies: Coded Allergies: No Known Drug Allergies (Unverified , 10/05/18) ROS General: No: Chills, Night Sweats, Fatigue, Malaise, Appetite, Other PSYCHOLOGICAL ROS: No: Anxiety, Behavioral Disorder, Concentration difficultie , Decreased libido, Depression, Disorientation, Hallucinations, Hostility, Irritablity, Memory difficulties, Mood Swings, Obsessive thoughts, Physical abuse, Sexual abuse, Sleep disturbances, Suicidal ideation, Other Eyes: No Blurry vision, No Decreased vision, No Double vision, No Dry eyes, No Excessive tearing, No Eye Pain, No Itchy Eyes, No Loss of vision, No Photophobia , No Scotomata, No Uses contacts, No Uses glasses, No Other HEENT: YES: Other (pain on top of head) ALLERGY AND IMMUNOLOGY: No: Hives, Insect Bite Sensitivity, Itchy/Watery Eyes, Nasal Congestion, Post Nasal Drip, Seasonal Allergies, Other Hematological and Lymphatic: No: Bleeding Problems, Blood Clots, Blood Transfusions, Brusing, Night Sweats, Pallor, Swollen Lymph Nodes, Other ENDOCRINE: No: Breast Changes, Galactorrhea, Hair Pattern Changes, Hot Flashes , Malaise/lethargy, Mood Swings, Palpitations, Polydipsia/polyuria, Skin Changes , Temperature Intolerance, Unexpected Weight Changes, Other Cardiovascular: yes Chest Pain (mild, improved) Gastrointestinal: No Nausea, No Vomiting, No Abdominal Pain, No Diarrhea, No Constipation, No Melena, No Hematochezia, No Other Genitourinary: No Dysuria, No Frequency, No Incontinence, No Hematuria, No Retention, No Discharge, No Urgency, No Pain, No Flank Pain, No Other, No , No , No , No , No , No , No Musculoskeletal: No Gait Disturbance, No Joint Pain, No Joint Stiffness, No Joint Swelling, No Muscle Pain, No Muscular Weakness, No Pain In:, No Swelling In:, No Other Neurological: No Behavorial Changes, No Bowel/Bladder ControlChng, No Confusion , No Dizziness, No Gait Disturbance, No Headaches, No Impaired Coord/balance, No Memory Loss, No Numbness/Tingling, No Seizures, No Speech Problems, No Tremors, No Visual Changes, No Weakness, No Other Skin: No Dry Skin, No Eczema, No Hair Changes, No Lumps, No Mole Changes, No Mottling, No Nail Changes, No Pruritus, No Rash, No Skin Lesion Changes, No Other, No Acne Physical Exam General: Alert, Oriented X3, Cooperative, No acute distress HEENT: Other (in collar, small scalp abrasion with hematoma, no laceration) Lungs: Clear to auscultation Heart: Regular rate Abdomen: Soft (super morbidly obese), No tenderness Extremities: Other (venous stasis change both lower legs) Skin: No rashes, No breakdown Neuro: Normal speech Psych/Mental Status: Mental status NL MUSCULOSKELETAL: No deformity Vitals VITALS Vital Signs Date Time Temp Pulse Resp B/P (MAP) Pulse Ox O2 Delivery O2 Flow Rate FiO2 10/06/18 08:09 18 10/06/18 07:41 82 100 10/06/18 03:14 Room Air 10/05/18 23:38 98.3 163/106 (125) 98.3 Labs Labs Laboratory Tests Test 10/06/18 02:15 10/06/18 03:03 10/06/18 04:20 10/06/18 04:30 Urine Collection Type Unknown Urine Color Yellow Urine Clarity Clear Urine pH 6.0 Urine Specific [place] 1.025 Urine Protein Negative mg/dL (NEG-TRACE) Urine Glucose (UA) Negative mg/dL (NEG) Urine Ketones (Stick) Negative mg/dL (NEG) Urine Blood Small (NEG) Urine Nitrite Negative (NEG) Urine Bilirubin Small (NEG) Urine Urobilinogen Dipstick 1.0 mg/dL (0.2 mg/dL) Urine Leukocyte Esterase Negative (NEG) Urine RBC 1-2 /HPF (0-2) Urine WBC Occ /HPF (0-4) Urine Squamous Epithelial Cells Occ /LPF Urine Bacteria 0 /HPF (0-FEW) Urine Mucus Mod /LPF White Blood Count 10.9 x10^3/uL (4.0-11.0) Red Blood Count 5.11 x10^6/uL (4.30-5.70) Hemoglobin 16.3 g/dL (13.0-17.5) Hematocrit 48.9 % (39.0-53.0) Mean Corpuscular Volume 96 fL (79-100) Mean Corpuscular Hemoglobin 32 pg (25-35) Mean Corpuscular Hemoglobin Concent 33 g/dL (31-37) Red Cell Distribution Width 13.9 % (11.5-14.5) Platelet Count 274 x10^3/uL (140-400) Neutrophils (%) (Auto) 75 % (31-73) Lymphocytes (%) (Auto) 15 % (24-48) Monocytes (%) (Auto) 8 % (0-9) Eosinophils (%) (Auto) 1 % (0-3) Basophils (%) (Auto) 1 % (0-3) Neutrophils # (Auto) 8.2 x10^3uL (1.8-7.7) Lymphocytes # (Auto) 1.6 x10^3/uL (1.0-4.8) Monocytes # (Auto) 0.9 x10^3/uL (0.0-1.1) Eosinophils # (Auto) 0.1 x10^3/uL (0.0-0.7) Basophils # (Auto) 0.1 x10^3/uL (0.0-0.2) Prothrombin Time 14.2 SEC (11.7-14.0) Prothromb Time International Ratio 1.1 (0.8-1.1) Activated Partial Thromboplast Time 34 SEC (24-38) Sodium Level 140 mmol/L (136-145) Potassium Level 3.8 mmol/L (3.5-5.1) Chloride Level 104 mmol/L (98-107) Carbon Dioxide Level 28 mmol/L (21-32) Anion Gap 8 (6-14) Blood Urea Nitrogen 7 mg/dL (8-26) Creatinine 1.0 mg/dL (0.7-1.3) Estimated GFR (Cockcroft-Gault) 78.5 BUN/Creatinine Ratio 7 (6-20) Glucose Level 108 mg/dL (70-99) Calcium Level 8.9 mg/dL (8.5-10.1) Magnesium Level 2.0 mg/dL (1.8-2.4) Total Bilirubin 1.6 mg/dL (0.2-1.0) Aspartate Amino Transf (AST/SGOT) 29 U/L (15-37) Alanine Aminotransferase (ALT/SGPT) 28 U/L (16-63) Alkaline Phosphatase 130 U/L (46-116) Total Protein 7.9 g/dL (6.4-8.2) Albumin 3.4 g/dL (3.4-5.0) Albumin/Globulin Ratio 0.8 (1.0-1.7) Creatine Kinase 593 U/L (39-308) Creatine Kinase MB (Mass) 3.5 ng/mL (0.0-3.6) Creatine Kinase MB Relative Index 0.6 % (0-4) Troponin I Quantitative < 0.017 ng/mL (0.000-0.055) Laboratory Tests Test 10/06/18 02:15 10/06/18 03:03 10/06/18 04:20 10/06/18 04:30 Urine Collection Type Unknown Urine Color Yellow Urine Clarity Clear Urine pH 6.0 Urine Specific [place] 1.025 Urine Protein Negative mg/dL (NEG-TRACE) Urine Glucose (UA) Negative mg/dL (NEG) Urine Ketones (Stick) Negative mg/dL (NEG) Urine Blood Small (NEG) Urine Nitrite Negative (NEG) Urine Bilirubin Small (NEG) Urine Urobilinogen Dipstick 1.0 mg/dL (0.2 mg/dL) Urine Leukocyte Esterase Negative (NEG) Urine RBC 1-2 /HPF (0-2) Urine WBC Occ /HPF (0-4) Urine Squamous Epithelial Cells Occ /LPF Urine Bacteria 0 /HPF (0-FEW) Urine Mucus Mod /LPF White Blood Count 10.9 x10^3/uL (4.0-11.0) Red Blood Count 5.11 x10^6/uL (4.30-5.70) Hemoglobin 16.3 g/dL (13.0-17.5) Hematocrit 48.9 % (39.0-53.0) Mean Corpuscular Volume 96 fL (79-100) Mean Corpuscular Hemoglobin 32 pg (25-35) Mean Corpuscular Hemoglobin Concent 33 g/dL (31-37) Red Cell Distribution Width 13.9 % (11.5-14.5) Platelet Count 274 x10^3/uL (140-400) Neutrophils (%) (Auto) 75 % (31-73) Lymphocytes (%) (Auto) 15 % (24-48) Monocytes (%) (Auto) 8 % (0-9) Eosinophils (%) (Auto) 1 % (0-3) Basophils (%) (Auto) 1 % (0-3) Neutrophils # (Auto) 8.2 x10^3uL (1.8-7.7) Lymphocytes # (Auto) 1.6 x10^3/uL (1.0-4.8) Monocytes # (Auto) 0.9 x10^3/uL (0.0-1.1) Eosinophils # (Auto) 0.1 x10^3/uL (0.0-0.7) Basophils # (Auto) 0.1 x10^3/uL (0.0-0.2) Prothrombin Time 14.2 SEC (11.7-14.0) Prothromb Time International Ratio 1.1 (0.8-1.1) Activated Partial Thromboplast Time 34 SEC (24-38) Sodium Level 140 mmol/L (136-145) Potassium Level 3.8 mmol/L (3.5-5.1) Chloride Level 104 mmol/L (98-107) Carbon Dioxide Level 28 mmol/L (21-32) Anion Gap 8 (6-14) Blood Urea Nitrogen 7 mg/dL (8-26) Creatinine 1.0 mg/dL (0.7-1.3) Estimated GFR (Cockcroft-Gault) 78.5 BUN/Creatinine Ratio 7 (6-20) Glucose Level 108 mg/dL (70-99) Calcium Level 8.9 mg/dL (8.5-10.1) Magnesium Level 2.0 mg/dL (1.8-2.4) Total Bilirubin 1.6 mg/dL (0.2-1.0) Aspartate Amino Transf (AST/SGOT) 29 U/L (15-37) Alanine Aminotransferase (ALT/SGPT) 28 U/L (16-63) Alkaline Phosphatase 130 U/L (46-116) Total Protein 7.9 g/dL (6.4-8.2) Albumin 3.4 g/dL (3.4-5.0) Albumin/Globulin Ratio 0.8 (1.0-1.7) Creatine Kinase 593 U/L (39-308) Creatine Kinase MB (Mass) 3.5 ng/mL (0.0-3.6) Creatine Kinase MB Relative Index 0.6 % (0-4) Troponin I Quantitative < 0.017 ng/mL (0.000-0.055) Assessment/Plan Assessment/Plan 53 year old male S/P fall, C2 fx, scalp hematoma. Labs and Xrays reviewed; The patient is in a hard collar and was seen by Dr Machado. Evidently no surgery is necessary for the C2 injury. No other signs of trauma, expect scalp hematoma to resolve. Will sign off, please call if needed in the future. VERO MORENO MD Oct 06, 2018 11:48
[2018-10-06] MEDS: IV NORMAL SALINE 1000ML BAG 1,000 ML IV SCH (13:01)
[2018-10-06] MEDS ORDERED: CELE200C PO (13:25)
[2018-10-06] MEDS ORDERED: RIVA20TA2 PO (13:25)
[2018-10-06] MEDS ORDERED: CHOL10003 PO (13:25)
[2018-10-06] MEDS ORDERED: ANTI-COAG MONITOR BY PHARMACY. MC PRN (13:45)
[2018-10-06] MEDS: CYCLOBENZAPRINE 10 MG TABLET. PO PRN (14:10)
[2018-10-06] MEDS: HYDROcodone/APAP 5/325MG 1 TAB TABLET PO PRN (14:11)
--- NOTE | 2018-10-06 14:12 | EKG ---
[facility] [address] [place] [address] Test Date: 2018-10-06 Test Time: 06:42:52 Pat Name: JONATHAN BREWER Department: Room: 116 1 Gender: M [employer]: ELKE : 1965 Requested By: LEANDRA GIRON Order Number: [id number] Reading MD: Joseph Mayo MD Measurements Intervals [place] Rate: 76 P: 26 [place]: 164 QRS: 0 QRSD: 88 T: 24 QT: 384 QTc: 436 Interpretive Statements SINUS RHYTHM Electronically Signed On 10-09-2018 12:22:19 CDT by Joseph Mayo MD
--- NOTE | 2018-10-06 14:59 | PDOC2 ---
NEUROLOGY CONSULT Date of Admission Date of Admission DATE: 10/06/18 TIME: 14:43 Reason for Consult Reason for Consult: IMPRESSION: C2 fracture. Scalp hematoma. Fall. HTN. Elevated total bilirubin level. Right LE DVT, chronic, on Xarelto. Morbid obesity, BMI 67. RECOMMENDATIONS/PLAN: Consulted NS and Surgery. Treat medical diseases. 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 He had a fall on 10/05/18 who was reportedly at standing position and fell forward striking the top portion of his head on a wagon wheel. He denies loss of consciousness, and felt that he momentarily "had the wind knocked out of me". He got up by himself feeling mild pain in his head and neck, but he continued physical activity for about 7-8 hours. Due to concerns of ICH because he has been on Xarelto, so he eventually went to [facility] searching medical attention. He was transferred to [facility] as the CT scanner was unable to accommodate his weight in [facility]. He was revealed C2 fracture and scalp hematoma, but no ICH, SAH, or SDH. He is currently in a neck collar and has no other significant complaints. Past Medical History Pulmonary: No pertinent hx, Other (MCKENZIE) Heme/Onc: Other (DVT RIGHT LEG 2017 ON XARELTO) Hepatobiliary: No pertinent hx Psych: No pertinent hx Infectious disease: No pertinent hx Dermatology: Other (VENOUS INSUFF BOTH LOWER LEGS, CHRONIC) Past Surgical History Lap brian, tonsillectomy, plastic surgery on posterior neck Family History Heart Disease, Hypertension Social History ALCOHOL: none Drugs: None ALLERGY: Unknown MEDICATIONS: Refer to [facility] REVIEW OF SYSTEMS: Constitutional: Morbid obesity. Head: head soft tissue injury this time. Skin: No rash. Ear: No infection, tinnitus. Eyes: No vision loss or color blindness. Nose: No bleeding or purulent discharges. Hearing: No hearing decrease. Neck: C2 fracture this time. Cardiac: HTN, HLD. Pulmonary: No pneumonia, COPD. GI: No GI ulcer, GI bleeding. Urinary/genital: No dysuria, incontinence, urinary retention. Endocrinologic: Morbid obesity. Skeletomuscular: No muscular atrophy, deformity. Neurological: see HP. Psychiatric: Denies drug use/abuse. Otherwise, not [id number] review of systems. PHYSICAL EXAMINATION: General appearance is in subacute distress. HEENT: Normocephalic and nontraumatic. Eyes, nose, ears, and throat are unremarkable. Neck is supple. No lymphadenopathy. No bruits are heard over the carotid artery. No crepitus. Cardiovascular: S1, S2, regular rate and rhythm. Pulmonary: Clear to auscultation bilaterally. Abdomen: Bowel sounds are positive. Abdomen is soft, nontender, and nondistended. Extremities: No rash, lesions. No restriction of range of motion NEUROLOGICAL EXAMINATION: Alert Oriented to time, place and person. PERRL. EOMI. CN: no focal findings. Muscle tone: within normal. Muscle strength: 5- DTR: 0-1 due to obesity. Plantar reflex: Flexor response bilaterally Gait: not examined in bed. Sensory exam: no abnormal findings. No cerebellar signs elicited. F-T-N test fine. Current Medications Current Medications Current Medications Acetaminophen/ Hydrocodone Bitart (Lortab 10/325) 1 tab 1X ONCE PO ; Start at 02:15; Stop 10/06/18 at 02:16; Status UNV Sodium Chloride 1,000 ml @ 100 mls/hr 1X ONCE IV Last administered on at 06:15; Start 10/06/18 at 02:30; Stop 10/06/18 at 12:29; Status DC Fentanyl Citrate (Fentanyl 2ml Vial) 50 mcg 1X ONCE IV Last administered on at 03:14; Start 10/06/18 at 02:30; Stop 10/06/18 at 02:32; Status DC Sodium Chloride 1,000 ml @ 1,000 mls/hr 1X ONCE IV Last administered on at 03:15; Start 10/06/18 at 02:45; Stop 10/06/18 at 03:44; Status DC Ondansetron HCl (Zofran) 4 mg PRN Q8HRS PRN IV NAUSEA/VOMITING; Start 10/06/18 at 02:45; Stop 10/07/18 at 02:44 Fentanyl Citrate (Fentanyl 2ml Vial) 50 mcg PRN Q2HR PRN IV PAIN Last administered on 10/06/18at 13:01; Start 10/06/18 at 02:45 Iohexol (Omnipaque 350 Mg/ml) 100 ml 1X ONCE IV Last administered on at 05:20; Start 10/06/18 at 04:45; Stop 10/06/18 at 04:46; Status DC Info (CONTRAST GIVEN -- Rx MONITORING) 1 each PRN DAILY PRN MC SEE COMMENTS; Start 10/06/18 at 04:45; Stop 10/08/18 at 04:44 Sodium Chloride (Normal Saline Flush 3ml) 3 ml QSHIFT PRN IV AFTER MEDS AND BLOOD DRAWS; Start 10/06/18 at 11:15 Sodium Chloride 1,000 ml @ 100 mls/hr Q10H IV Last administered on 10/06/18at 13:01; Start 10/06/18 at 11:05 Ondansetron HCl (Zofran) 4 mg PRN Q4HRS PRN IV NAUSEA/VOMITING; Start 10/06/18 at 11:15 Acetaminophen (Tylenol) 650 mg PRN Q4HRS PRN PO TEMP OVER 100.4F OR MILD PAIN; Start 10/06/18 at 11:15 Al Hydroxide/Mg Hydroxide (Mylanta Plus Xs) 30 ml PRN DAILY PRN PO HEARTBURN / GAS; Start 10/06/18 at 11:15 Clonidine HCl (Catapres) 0.1 mg PRN Q6HRS PRN PO SBP>160 OR DBP>90; Start 10/06 at 11:15 Docusate Sodium (Colace) 100 mg PRN BID PRN PO CONSTIPATION; Start 10/06/18 at 11:15 Albuterol Sulfate (Ventolin Neb Soln) 2.5 mg PRN Q4HRS PRN NEB SHORTNESS OF BREATH; Start 10/06/18 at 11:15 Guaifenesin (Robitussin) 200 mg PRN Q4HRS PRN PO COUGH; Start 10/06/18 at 11:15 Lorazepam (Ativan) 0.5 mg PRN Q4HRS PRN PO ANXIETY / AGITATION; Start 10/06/18 at 11:15 Hydromorphone HCl (Dilaudid) 1 mg PRN Q2HRS PRN IV SEVERE PAIN; Start 10/06/18 at 11:15 Hydralazine HCl (Apresoline Inj) 10 mg PRN Q4HRS PRN IVP ELEVATED BP, SEE COMMENTS; Start 10/06/18 at 11:15 Lisinopril (Prinivil) 10 mg DAILY PO ; Start 10/07/18 at 09:00 Lisinopril (Prinivil) 10 mg 1X ONCE PO Last administered on 10/06/18at 13:02; Start 10/06/18 at 11:30; Stop 10/06/18 at 11:31; Status DC Cyclobenzaprine HCl (Flexeril) 10 mg PRN Q12HR PRN PO MUSCLE SPASMS Last administered on 10/06/18at 14:10; Start 10/06/18 at 13:30 Acetaminophen/ Hydrocodone Bitart (Lortab 5/325) 1 tab PRN Q4HRS PRN PO MODERATE-SEVERE PAIN Last administered on 10/06/18at 14:11; Start 10/06/18 at 13: 30 Vitamin D (Vitamin D3) 2,000 unit DAILY PO ; Start 10/07/18 at 09:00 Celecoxib (CeleBREX) 200 mg BID PO ; Start 10/06/18 at 21:00 Rivaroxaban (Xarelto) 20 mg DAILYWSUP PO ; Start 10/06/18 at 17:00 Info (Anti-Coagulation Monitoring By Pharmacy) 1 each PRN DAILY PRN MC SEE COMMENTS; Start 10/06/18 at 13:45 Active Scripts Active Reported Celebrex (Celecoxib) 200 Mg Capsule 200 Mg PO BID 30 Days Xarelto (Rivaroxaban) 20 Mg Tablet 20 Mg PO DAILY Vitamin D3 (Cholecalciferol (Vitamin D3)) 1,000 Unit Tablet 2,000 Unit PO DAILY Allergies Allergies: Allergies Coded Allergies Type Severity Reaction Last Updated Verified No Known Drug Allergies 10/05/18 No ROS Review of System The patient denies any associated fevers, chills, headache, ear pain, rhinorrhea , sore throat, stiff neck, productive cough, chest pain, shortness of breath, back or flank pain, abdominal pain, nausea, vomiting, diarrhea, constipation, dysuria, rash, numbness, weakness, tingling, incontinence, difficulty ambulating, or diaphoresis. Physical Exam Physical Exam General: Well developed, well nourished, no acute distress, well appearing HEENT: Pupils equally round and reactive to light, EOMI, no discharge, normal conjunctiva Neck: Supple, no nuchal rigidity, no JVD, trachea midline, no tenderness Cardiac: RRR, no murmurs, no gallops, no rubs Chest/Lungs: CTAB, no wheeze, no rhonchi, no crackles Abdomen: soft, non-distended, no guarding, no peritoneal signs, non-tender Back: No tenderness Extremities: no edema, pulses intact, non-tender,capillary refill <3 sec bilateral upper and lower extremities, Neuro: Alert and oriented x 4, no focal deficits, normal speech Vitals Vitals: Vital Signs Date Time Temp Pulse Resp B/P (MAP) Pulse Ox O2 Delivery O2 Flow Rate FiO2 10/06/18 13:02 75 10/06/18 08:09 18 10/06/18 07:41 100 10/06/18 03:14 Room Air 10/05/18 23:38 98.3 163/106 (125) 98.3 Labs Labs Laboratory Tests Test 10/06/18 02:15 10/06/18 03:03 10/06/18 04:20 10/06/18 04:30 Urine Collection Type Unknown Urine Color Yellow Urine Clarity Clear Urine pH 6.0 Urine Specific [place] 1.025 Urine Protein Negative mg/dL (NEG-TRACE) Urine Glucose (UA) Negative mg/dL (NEG) Urine Ketones (Stick) Negative mg/dL (NEG) Urine Blood Small (NEG) Urine Nitrite Negative (NEG) Urine Bilirubin Small (NEG) Urine Urobilinogen Dipstick 1.0 mg/dL (0.2 mg/dL) Urine Leukocyte Esterase Negative (NEG) Urine RBC 1-2 /HPF (0-2) Urine WBC Occ /HPF (0-4) Urine Squamous Epithelial Cells Occ /LPF Urine Bacteria 0 /HPF (0-FEW) Urine Mucus Mod /LPF White Blood Count 10.9 x10^3/uL (4.0-11.0) Red Blood Count 5.11 x10^6/uL (4.30-5.70) Hemoglobin 16.3 g/dL (13.0-17.5) Hematocrit 48.9 % (39.0-53.0) Mean Corpuscular Volume 96 fL (79-100) Mean Corpuscular Hemoglobin 32 pg (25-35) Mean Corpuscular Hemoglobin Concent 33 g/dL (31-37) Red Cell Distribution Width 13.9 % (11.5-14.5) Platelet Count 274 x10^3/uL (140-400) Neutrophils (%) (Auto) 75 % (31-73) Lymphocytes (%) (Auto) 15 % (24-48) Monocytes (%) (Auto) 8 % (0-9) Eosinophils (%) (Auto) 1 % (0-3) Basophils (%) (Auto) 1 % (0-3) Neutrophils # (Auto) 8.2 x10^3uL (1.8-7.7) Lymphocytes # (Auto) 1.6 x10^3/uL (1.0-4.8) Monocytes # (Auto) 0.9 x10^3/uL (0.0-1.1) Eosinophils # (Auto) 0.1 x10^3/uL (0.0-0.7) Basophils # (Auto) 0.1 x10^3/uL (0.0-0.2) Prothrombin Time 14.2 SEC (11.7-14.0) Prothromb Time International Ratio 1.1 (0.8-1.1) Activated Partial Thromboplast Time 34 SEC (24-38) Sodium Level 140 mmol/L (136-145) Potassium Level 3.8 mmol/L (3.5-5.1) Chloride Level 104 mmol/L (98-107) Carbon Dioxide Level 28 mmol/L (21-32) Anion Gap 8 (6-14) Blood Urea Nitrogen 7 mg/dL (8-26) Creatinine 1.0 mg/dL (0.7-1.3) Estimated GFR (Cockcroft-Gault) 78.5 BUN/Creatinine Ratio 7 (6-20) Glucose Level 108 mg/dL (70-99) Calcium Level 8.9 mg/dL (8.5-10.1) Magnesium Level 2.0 mg/dL (1.8-2.4) Total Bilirubin 1.6 mg/dL (0.2-1.0) Aspartate Amino Transf (AST/SGOT) 29 U/L (15-37) Alanine Aminotransferase (ALT/SGPT) 28 U/L (16-63) Alkaline Phosphatase 130 U/L (46-116) Total Protein 7.9 g/dL (6.4-8.2) Albumin 3.4 g/dL (3.4-5.0) Albumin/Globulin Ratio 0.8 (1.0-1.7) Creatine Kinase 593 U/L (39-308) Creatine Kinase MB (Mass) 3.5 ng/mL (0.0-3.6) Creatine Kinase MB Relative Index 0.6 % (0-4) Troponin I Quantitative < 0.017 ng/mL (0.000-0.055) Laboratory Tests Test 10/06/18 02:15 10/06/18 03:03 10/06/18 04:20 10/06/18 04:30 Urine Collection Type Unknown Urine Color Yellow Urine Clarity Clear Urine pH 6.0 Urine Specific [place] 1.025 Urine Protein Negative mg/dL (NEG-TRACE) Urine Glucose (UA) Negative mg/dL (NEG) Urine Ketones (Stick) Negative mg/dL (NEG) Urine Blood Small (NEG) Urine Nitrite Negative (NEG) Urine Bilirubin Small (NEG) Urine Urobilinogen Dipstick 1.0 mg/dL (0.2 mg/dL) Urine Leukocyte Esterase Negative (NEG) Urine RBC 1-2 /HPF (0-2) Urine WBC Occ /HPF (0-4) Urine Squamous Epithelial Cells Occ /LPF Urine Bacteria 0 /HPF (0-FEW) Urine Mucus Mod /LPF White Blood Count 10.9 x10^3/uL (4.0-11.0) Red Blood Count 5.11 x10^6/uL (4.30-5.70) Hemoglobin 16.3 g/dL (13.0-17.5) Hematocrit 48.9 % (39.0-53.0) Mean Corpuscular Volume 96 fL (79-100) Mean Corpuscular Hemoglobin 32 pg (25-35) Mean Corpuscular Hemoglobin Concent 33 g/dL (31-37) Red Cell Distribution Width 13.9 % (11.5-14.5) Platelet Count 274 x10^3/uL (140-400) Neutrophils (%) (Auto) 75 % (31-73) Lymphocytes (%) (Auto) 15 % (24-48) Monocytes (%) (Auto) 8 % (0-9) Eosinophils (%) (Auto) 1 % (0-3) Basophils (%) (Auto) 1 % (0-3) Neutrophils # (Auto) 8.2 x10^3uL (1.8-7.7) Lymphocytes # (Auto) 1.6 x10^3/uL (1.0-4.8) Monocytes # (Auto) 0.9 x10^3/uL (0.0-1.1) Eosinophils # (Auto) 0.1 x10^3/uL (0.0-0.7) Basophils # (Auto) 0.1 x10^3/uL (0.0-0.2) Prothrombin Time 14.2 SEC (11.7-14.0) Prothromb Time International Ratio 1.1 (0.8-1.1) Activated Partial Thromboplast Time 34 SEC (24-38) Sodium Level 140 mmol/L (136-145) Potassium Level 3.8 mmol/L (3.5-5.1) Chloride Level 104 mmol/L (98-107) Carbon Dioxide Level 28 mmol/L (21-32) Anion Gap 8 (6-14) Blood Urea Nitrogen 7 mg/dL (8-26) Creatinine 1.0 mg/dL (0.7-1.3) Estimated GFR (Cockcroft-Gault) 78.5 BUN/Creatinine Ratio 7 (6-20) Glucose Level 108 mg/dL (70-99) Calcium Level 8.9 mg/dL (8.5-10.1) Magnesium Level 2.0 mg/dL (1.8-2.4) Total Bilirubin 1.6 mg/dL (0.2-1.0) Aspartate Amino Transf (AST/SGOT) 29 U/L (15-37) Alanine Aminotransferase (ALT/SGPT) 28 U/L (16-63) Alkaline Phosphatase 130 U/L (46-116) Total Protein 7.9 g/dL (6.4-8.2) Albumin 3.4 g/dL (3.4-5.0) Albumin/Globulin Ratio 0.8 (1.0-1.7) Creatine Kinase 593 U/L (39-308) Creatine Kinase MB (Mass) 3.5 ng/mL (0.0-3.6) Creatine Kinase MB Relative Index 0.6 % (0-4) Troponin I Quantitative < 0.017 ng/mL (0.000-0.055) CLIFTON DUCKWORTH MD Oct 06, 2018 14:59
[2018-10-06] MEDS: RIVAROXABAN 10 MG TABLET. PO SCH (17:09)
--- NOTE | 2018-10-06 17:31 | CONS ---
DATE OF CONSULTATION: 10/06/2018 REASON FOR CONSULTATION: Hypertension. HISTORY OF PRESENT ILLNESS: The patient is a pleasant 53-year-old male with a past medical history of DVT, PE and on anticoagulation, who presented to the hospital at [place] in the setting of a fall, head contusion. He was diagnosed with a scalp hematoma and was transferred actually to [place] due to the CT scanner at [place] is not working well. He was diagnosed with a C2 vertebral issue which apparently is being treated with nonoperative manner and he is in a neck collar. Cardiology was asked to comment on his blood pressures. The patient does not have any blood pressure issues. He currently is in pain related to his neck collar. Denies any syncope, palpitations, orthopnea, PND or lower extremity edema. PAST MEDICAL HISTORY: As noted above, includes DVT, PE history. SOCIAL HISTORY: No alcohol, tobacco or illicit drug use. 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 ALLERGIES: No known drug allergies. CURRENT CARDIOVASCULAR MEDICATIONS: 1. Rivaroxaban 20 mg daily. 2. Lisinopril 10 mg daily, which was started at this admission for elevated blood pressures. REVIEW OF SYSTEMS: Negative for 10 out of 14 systems reviewed, unless otherwise mentioned above in HPI. PHYSICAL EXAMINATION: VITAL SIGNS: Afebrile, blood pressure 117/80, pulse ox 96% on room air. GENERAL: He is alert and oriented, no acute distress. HEAD AND NECK: Unremarkable. CARDIAC: Regular rhythm without murmurs, rubs, gallops. LUNGS: Clear to auscultation bilaterally. ABDOMEN: Soft, nontender, nondistended. EXTREMITIES: Without any clubbing, cyanosis, but does have chronic venous stasis changes and trace pitting edema. NEUROLOGIC: No focal deficits. MUSCULOSKELETAL: Right scalp hematoma noted. DIAGNOSTIC STUDIES: Cardiac enzymes, creatinine, platelets, hemoglobin are within normal limits. EKG is grossly unremarkable. IMPRESSION: 1. Mild hypertension, likely in the setting of acute distress without prior history. 2. Falls secondary to mechanical issue. No obvious cardiac pathology. 3. Morbid obesity. 4. Obstructive sleep apnea. RECOMMENDATIONS: 1. Continue current medical therapy. No further cardiac evaluation necessary. 2. I discussed with him about chronic obesity and possible consideration of gastric bypass and cardiac risk stratification an outpatient basis. Thank you for this consultation. RICK ESCALONA MD DR: Ahsan JOB#: [id number] / [id number]
[2018-10-06] MEDS: CELECOXIB 100 MG CAPSULE. PO SCH (20:27)
[2018-10-07] VITALS (7 sets, daily range): BP systolic 104–157; BP diastolic 50–102
[2018-10-07] MEDS: fentaNYL PF VIAL 100 MCG/2 ML VIAL IV PRN (01:05)
[2018-10-07] MEDS: HYDROcodone/APAP 5/325MG 1 TAB TABLET PO PRN ×3 (01:05→22:01)
[2018-10-07] MEDS: IV NORMAL SALINE 1000ML BAG 1,000 ML IV SCH ×3 (01:06→17:05)
[2018-10-07] MEDS: DOCUSATE SODIUM 100 MG CAPSULE. PO PRN ×3 (01:08→22:01)
--- NOTE | 2018-10-07 05:37 | CONS ---
DATE OF CONSULTATION: 10/06/2018 ATTENDING PHYSICIAN: Dr. Mena. The patient was seen at the request of Dr. Mena for rehab evaluation. 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 The patient had a mechanical fall on 10/05/2018 at his home on the driveway. He reports falling forward and striking his head on the garage wall and left knee without any loss of consciousness. The patient is getting around at home, he noted some swelling on top of his head and he is on Xarelto for chronic right lower extremity deep venous thrombosis since 2017. He had some neck pain, which he attributes to his known ankylosing spondylitis. The patient is concerned about any significant hemorrhage in the brain area, so he was seen in the Emergency Room at [employer] where he works and chest x-ray failed to reveal any acute abnormality. They could not accommodate CT because of his obesity, being more than 500 pounds weight. He was seen in the Emergency Room this morning where he had CT scan of the brain and cervical spine, which revealed no intracranial hemorrhage or mass lesion or hydrocephalus or infarction or no acute ischemic changes, right frontoparietal soft tissue swelling and a small 3 cm hematoma of the vertex. Orbits, mastoid, paranasal sinuses and bones are unremarkable. CT of the cervical spine revealed acute traumatic fracture of C2 vertebral body vertically oriented of the anterior C2 vertebral body without any fracture of the dens, also hairline acute traumatic fracture of right C2 pedicle, which disrupts medial wall of the foramen transversarium without distraction, involvement of the foramen could increase the probability of vertebral artery injury. Remainder of cervical spine examination is intact. Chronic nonunion right posterior rib fracture with sclerotic bony margins, bridging anterior, posterior thick cervical longitudinal ligament ossification may be a combination of ankylosing spondylitis as well as ossification of the posterior longitudinal ligament and diffuse idiopathic skeletal hyperostosis with multilevel severe spinal canal stenosis, multilevel neural foraminal stenosis due to uncovertebral spur also present. The patient had CTA of head and neck, which failed to reveal any evidence of vertebral artery dissection, aneurysm or thrombosis evident at the area of C2 cervical fracture. The patient denies any neck pain or headache or any trouble with swallowing, speech or bowel or bladder control or any numbness, tingling sensation or weakness in his extremities. He denies any difficulty with his vision. PHYSICAL EXAMINATION: Today revealed a middle-aged male, patient is obese. He is alert, oriented to time, place, person and circumstance and cooperated during the examination. He had [place] soft cervical collar in place. He moves all 4 extremities voluntarily where he had 5/5 grade muscle strength and deep tendon reflexes are 1+ and symmetrical and he had equal perception of touch and pinprick sensation bilaterally. He had crepitus on range of motion of knee joint with mild knee joint effusion, painful range of motion on both hip joints. He had evidence of chronic venous insufficiency of distal parts of both legs with some discoloration of the skin. No calf tenderness noted. The patient has per nursing staff; he is independent with bed mobility, transfers, and walking. ASSESSMENT: 1. C2 vertebral fracture from mechanical fall, onset 10/05/2018 in a patient with ankylosing spondylitis of cervical vertebrae with some degree of central spinal and neural foraminal compromise, but no clinical evidence of cervical radiculopathy. 2. Degenerative joint disease of the knees. 3. Chronic venous insufficiency of both lower extremities. 4. Obesity. RECOMMENDATIONS: To get him up as tolerated. Agree with the plans for getting him new neck brace and hopefully home with outpatient followup when medically stable in the next day or so. Dr. Mena, I appreciate asking me to participate in the care of this interesting patient. I will be glad to follow him with you as needed for the rehabilitation. GIORGIO BELTRAN MD DR: COSTA/sukhdeep JOB#: [id number] / [id number]
--- NOTE | 2018-10-07 09:34 | PDOC ---
PROGRESS NOTES History of Present Illness History of Present Illness Assessment/Plan Assessment/Plan IMPRESSION: 1.Acute traumatic fracture of the C2 vertebra 2.normal CT angiography head and neck. Specifically there is no vertebral artery dissection, aneurysm or thrombosis evident at the area of C2 cervical fracture. No plaque, dissection, thrombosis, aneurysm, stenosis or occlusion of the vertebral arteries including the right vertebral artery is it crosses the C2 transverse foramen patent. Nondisplaced fracture. Retropharyngeal carotid arteries. Tiny calcified plaque left carotid bifurcation. No vessel irregularity, thrombus, dissection, aneurysm, stenosis or occlusion of the carotid arteries in the neck. C2 vertebral fracture again demonstrated. 3. ankylosing spondylitis as well as ossification of the posterior longitudinal ligament and diffuse idiopathic skeletal hyperostosis, with multilevel severe spinal canal stenoses. Multilevel neural foraminal stenoses due to uncovertebral spurs 4. extreme morbid obesity 5, hx DVT RIGHT LEG 2017 on xarelto 6. chest wall discomfort from acute fall 7. mild inc CPK, CHK Troponin i OK X 1 8. high fall risk 9. MCKENZIE 10. MILD Occiput contusion 11. hypertension, LABILE plan 1. Consult neurosurgery 2. consult neurology 3. consult DR Collazo, trauma eval 4. neurochecks q 4 hrs 5. ICU BED 6. [place] collar 7. Bariatric bed 8. up with assist only 9. CARDIAC DIET 10. ECHO TODAY 11. lisinopril 10 mg po DAILY 12. hydralazine 10mg iv q 4 hrs prn bp support 42 min PT EXAM, CHART REVIEW, PT CARE COORDINATION Vitals Vitals Vital Signs Date Time Temp Pulse Resp B/P (MAP) Pulse Ox O2 Delivery O2 Flow Rate FiO2 10/07/18 07:00 98.2 80 20 146/85 (105) 96 Room Air 98.2 Physical Exam General: Alert, Oriented X3, Cooperative, No acute distress, mild distress Heart: Regular rate Lungs: Clear Abdomen: Soft (super morbidly obese), No tenderness Extremities: No cyanosis, Other (venous stasis change both lower legs) Skin: No rashes, No breakdown Assessment and Plan Assessmemt and Plan Problems Medical Problems: (1) C2 cervical fracture Status: Acute Comment Review of Relevant I have reviewed the following items rich (where applicable) has been applied. Labs Laboratory Tests Test 10/06/18 02:15 10/06/18 03:03 10/06/18 04:20 10/06/18 04:30 Urine Collection Type Unknown Urine Color Yellow Urine Clarity Clear Urine pH 6.0 Urine Specific [place] 1.025 Urine Protein Negative mg/dL (NEG-TRACE) Urine Glucose (UA) Negative mg/dL (NEG) Urine Ketones (Stick) Negative mg/dL (NEG) Urine Blood Small (NEG) Urine Nitrite Negative (NEG) Urine Bilirubin Small (NEG) Urine Urobilinogen Dipstick 1.0 mg/dL (0.2 mg/dL) Urine Leukocyte Esterase Negative (NEG) Urine RBC 1-2 /HPF (0-2) Urine WBC Occ /HPF (0-4) Urine Squamous Epithelial Cells Occ /LPF Urine Bacteria 0 /HPF (0-FEW) Urine Mucus Mod /LPF White Blood Count 10.9 x10^3/uL (4.0-11.0) Red Blood Count 5.11 x10^6/uL (4.30-5.70) Hemoglobin 16.3 g/dL (13.0-17.5) Hematocrit 48.9 % (39.0-53.0) Mean Corpuscular Volume 96 fL (79-100) Mean Corpuscular Hemoglobin 32 pg (25-35) Mean Corpuscular Hemoglobin Concent 33 g/dL (31-37) Red Cell Distribution Width 13.9 % (11.5-14.5) Platelet Count 274 x10^3/uL (140-400) Neutrophils (%) (Auto) 75 % (31-73) Lymphocytes (%) (Auto) 15 % (24-48) Monocytes (%) (Auto) 8 % (0-9) Eosinophils (%) (Auto) 1 % (0-3) Basophils (%) (Auto) 1 % (0-3) Neutrophils # (Auto) 8.2 x10^3uL (1.8-7.7) Lymphocytes # (Auto) 1.6 x10^3/uL (1.0-4.8) Monocytes # (Auto) 0.9 x10^3/uL (0.0-1.1) Eosinophils # (Auto) 0.1 x10^3/uL (0.0-0.7) Basophils # (Auto) 0.1 x10^3/uL (0.0-0.2) Prothrombin Time 14.2 SEC (11.7-14.0) Prothromb Time International Ratio 1.1 (0.8-1.1) Activated Partial Thromboplast Time 34 SEC (24-38) Sodium Level 140 mmol/L (136-145) Potassium Level 3.8 mmol/L (3.5-5.1) Chloride Level 104 mmol/L (98-107) Carbon Dioxide Level 28 mmol/L (21-32) Anion Gap 8 (6-14) Blood Urea Nitrogen 7 mg/dL (8-26) Creatinine 1.0 mg/dL (0.7-1.3) Estimated GFR (Cockcroft-Gault) 78.5 BUN/Creatinine Ratio 7 (6-20) Glucose Level 108 mg/dL (70-99) Calcium Level 8.9 mg/dL (8.5-10.1) Magnesium Level 2.0 mg/dL (1.8-2.4) Total Bilirubin 1.6 mg/dL (0.2-1.0) Aspartate Amino Transf (AST/SGOT) 29 U/L (15-37) Alanine Aminotransferase (ALT/SGPT) 28 U/L (16-63) Alkaline Phosphatase 130 U/L (46-116) Total Protein 7.9 g/dL (6.4-8.2) Albumin 3.4 g/dL (3.4-5.0) Albumin/Globulin Ratio 0.8 (1.0-1.7) Creatine Kinase 593 U/L (39-308) Creatine Kinase MB (Mass) 3.5 ng/mL (0.0-3.6) Creatine Kinase MB Relative Index 0.6 % (0-4) Troponin I Quantitative < 0.017 ng/mL (0.000-0.055) Medications Current Medications Acetaminophen/ Hydrocodone Bitart (Lortab 10/325) 1 tab 1X ONCE PO ; Start at 02:15; Stop 10/06/18 at 02:16; Status UNV Sodium Chloride 1,000 ml @ 100 mls/hr 1X ONCE IV Last administered on at 06:15; Start 10/06/18 at 02:30; Stop 10/06/18 at 12:29; Status DC Fentanyl Citrate (Fentanyl 2ml Vial) 50 mcg 1X ONCE IV Last administered on at 03:14; Start 10/06/18 at 02:30; Stop 10/06/18 at 02:32; Status DC Sodium Chloride 1,000 ml @ 1,000 mls/hr 1X ONCE IV Last administered on at 03:15; Start 10/06/18 at 02:45; Stop 10/06/18 at 03:44; Status DC Ondansetron HCl (Zofran) 4 mg PRN Q8HRS PRN IV NAUSEA/VOMITING; Start 10/06/18 at 02:45; Stop 10/07/18 at 02:44; Status DC Fentanyl Citrate (Fentanyl 2ml Vial) 50 mcg PRN Q2HR PRN IV PAIN Last administered on 10/07/18at 01:05; Start 10/06/18 at 02:45 Iohexol (Omnipaque 350 Mg/ml) 100 ml 1X ONCE IV Last administered on at 05:20; Start 10/06/18 at 04:45; Stop 10/06/18 at 04:46; Status DC Info (CONTRAST GIVEN -- Rx MONITORING) 1 each PRN DAILY PRN MC SEE COMMENTS; Start 10/06/18 at 04:45; Stop 10/08/18 at 04:44 Sodium Chloride (Normal Saline Flush 3ml) 3 ml QSHIFT PRN IV AFTER MEDS AND BLOOD DRAWS; Start 10/06/18 at 11:15 Sodium Chloride 1,000 ml @ 100 mls/hr Q10H IV Last administered on 10/07/18at 01:06; Start 10/06/18 at 11:05 Ondansetron HCl (Zofran) 4 mg PRN Q4HRS PRN IV NAUSEA/VOMITING; Start 10/06/18 at 11:15 Acetaminophen (Tylenol) 650 mg PRN Q4HRS PRN PO TEMP OVER 100.4F OR MILD PAIN; Start 10/06/18 at 11:15 Al Hydroxide/Mg Hydroxide (Mylanta Plus Xs) 30 ml PRN DAILY PRN PO HEARTBURN / GAS; Start 10/06/18 at 11:15 Clonidine HCl (Catapres) 0.1 mg PRN Q6HRS PRN PO SBP>160 OR DBP>90; Start 10/06 at 11:15 Docusate Sodium (Colace) 100 mg PRN BID PRN PO CONSTIPATION Last administered on 10/07/18at 01:08; Start 10/06/18 at 11:15 Albuterol Sulfate (Ventolin Neb Soln) 2.5 mg PRN Q4HRS PRN NEB SHORTNESS OF BREATH; Start 10/06/18 at 11:15 Guaifenesin (Robitussin) 200 mg PRN Q4HRS PRN PO COUGH; Start 10/06/18 at 11:15 Lorazepam (Ativan) 0.5 mg PRN Q4HRS PRN PO ANXIETY / AGITATION; Start 10/06/18 at 11:15 Hydromorphone HCl (Dilaudid) 1 mg PRN Q2HRS PRN IV SEVERE PAIN; Start 10/06/18 at 11:15 Hydralazine HCl (Apresoline Inj) 10 mg PRN Q4HRS PRN IVP ELEVATED BP, SEE COMMENTS; Start 10/06/18 at 11:15 Lisinopril (Prinivil) 10 mg DAILY PO ; Start 10/07/18 at 09:00 Lisinopril (Prinivil) 10 mg 1X ONCE PO Last administered on 10/06/18at 13:02; Start 10/06/18 at 11:30; Stop 10/06/18 at 11:31; Status DC Cyclobenzaprine HCl (Flexeril) 10 mg PRN Q12HR PRN PO MUSCLE SPASMS Last administered on 10/06/18at 14:10; Start 10/06/18 at 13:30 Acetaminophen/ Hydrocodone Bitart (Lortab 5/325) 1 tab PRN Q4HRS PRN PO MODERATE-SEVERE PAIN Last administered on 10/07/18at 01:05; Start 10/06/18 at 13: 30 Vitamin D (Vitamin D3) 2,000 unit DAILY PO ; Start 10/07/18 at 09:00 Celecoxib (CeleBREX) 200 mg BID PO Last administered on 10/06/18at 20:27; Start 10/06/18 at 21:00 Rivaroxaban (Xarelto) 20 mg DAILYWSUP PO Last administered on 10/06/18at 17:09; Start 10/06/18 at 17:00 Info (Anti-Coagulation Monitoring By Pharmacy) 1 each PRN DAILY PRN MC SEE COMMENTS; Start 10/06/18 at 13:45 Active Scripts Active Reported Celebrex (Celecoxib) 200 Mg Capsule 200 Mg PO BID 30 Days Xarelto (Rivaroxaban) 20 Mg Tablet 20 Mg PO DAILY Vitamin D3 (Cholecalciferol (Vitamin D3)) 1,000 Unit Tablet 2,000 Unit PO DAILY Vitals/I & O Vital Sign - Last 24 Hours 10/06/18 10/06/18 10/06/18 10/06/18 10:30 11:30 12:30 13:02 Temp 98.5 98.5 Pulse 82 80 77 75 B/P (MAP) 168/95 (119) 140/84 (102) 149/96 (113) Pulse Ox 96 O2 Delivery Room Air 10/06/18 10/06/18 10/06/18 10/06/18 13:30 14:30 15:12 15:12 Pulse 80 72 B/P (MAP) 143/89 (107) 117/80 (92) Pulse Ox 96 O2 Delivery Room Air Room Air 10/06/18 10/06/18 10/06/18 10/07/18 19:40 20:25 23:16 01:05 Temp 98.4 98.2 98.4 98.2 Pulse 80 63 Resp 16 16 22 B/P (MAP) 125/63 (83) 112/74 (87) Pulse Ox 94 98 O2 Delivery Room Air Room Air BiPAP/CPAP Room Air 10/07/18 10/07/18 10/07/18 01:05 03:54 07:00 Temp 97.5 98.2 97.5 98.2 Pulse 67 80 Resp 22 16 20 B/P (MAP) 137/95 (109) 146/85 (105) Pulse Ox 95 96 O2 Delivery Room Air BiPAP/CPAP Room Air Intake and Output 10/06/18 10/06/18 10/07/18 14:59 22:59 06:59 Intake Total 620 ml 460 ml 1760 ml Balance 620 ml 460 ml 1760 ml LILLIAN LIU MD Oct 07, 2018 09:34
[2018-10-07] MEDS: LISINOPRIL 10 MG TABLET PO SCH (10:31)
[2018-10-07] MEDS: CELECOXIB 100 MG CAPSULE. PO SCH ×2 (10:31→22:01)
[2018-10-07] MEDS: CHOLECALCIFEROL (VITAMIN D3) 1,000 UNIT TABLET PO SCH (10:32)
[2018-10-07] MEDS: CYCLOBENZAPRINE 10 MG TABLET. PO PRN ×2 (10:32→22:02)
--- NOTE | 2018-10-07 11:34 | RAD ---
2 view C-spine HISTORY: Follow-up C2 fracture Limited portable 2 view AP and crosstable lateral view C-spine There is poor visualization of the C-spine due to overlying neck brace. The C2 and C3 vertebral bodies appear aligned. The fracture of the C2 vertebral body seen in the October 06, 2018 CT is not seen. IMPRESSION: Limited 2 view C-spine shows no displacement of the C2 vertebral body. Clinical correlation is suggested. Electronically signed by: Champ Crane III, MD (10/07/2018 11:31 AM) [id number]
--- NOTE | 2018-10-07 12:29 | PDOC ---
PROGRESS NOTES Assessment Assessment C2 fracture. Scalp hematoma. Fall. HTN. Elevated total bilirubin level. Right LE DVT, chronic, on Xarelto. Morbid obesity, BMI 67. RECOMMENDATIONS/PLAN: Consulted NS and Surgery. Treat medical diseases. Weight reduction. OT/PT. 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. He had a fall on 10/05/18 who was reportedly at standing position and fell forward striking the top portion of his head on a wagon wheel. He denies loss of consciousness, and felt that he momentarily "had the wind knocked out of me". He got up by himself feeling mild pain in his head and neck, but he continued physical activity for about 7-8 hours. Due to concerns of ICH because he has been on Xarelto, so he eventually went to [facility] searching medical attention. He was transferred to [facility] as the CT scanner was unable to accommodate his weight in [facility]. He was revealed C2 fracture and scalp hematoma, but no ICH, SAH, or SDH. He is currently in a neck collar and has no other significant complaints. Past Medical History Pulmonary: No pertinent hx, Other (MCKENZIE) Heme/Onc: Other (DVT RIGHT LEG 2017 ON XARELTO) Hepatobiliary: No pertinent hx Psych: No pertinent hx Infectious disease: No pertinent hx Dermatology: Other (VENOUS INSUFF BOTH LOWER LEGS, CHRONIC) Past Surgical History Lap brian, tonsillectomy, plastic surgery on posterior neck Family History Heart Disease, Hypertension Social History ALCOHOL: none Drugs: None ALLERGY: Unknown MEDICATIONS: Refer to MAR REVIEW OF SYSTEMS: Constitutional: Morbid obesity. Head: head soft tissue injury this time. Skin: No rash. Ear: No infection, tinnitus. Eyes: No vision loss or color blindness. Nose: No bleeding or purulent discharges. Hearing: No hearing decrease. Neck: C2 fracture this time. Cardiac: HTN, HLD. Pulmonary: No pneumonia, COPD. GI: No GI ulcer, GI bleeding. Urinary/genital: No dysuria, incontinence, urinary retention. Endocrinologic: Morbid obesity. Skeletomuscular: No muscular atrophy, deformity. Neurological: see HP. Psychiatric: Denies drug use/abuse. Otherwise, not [id number] review of systems. PHYSICAL EXAMINATION: General appearance is in subacute distress. HEENT: Normocephalic and nontraumatic. Eyes, nose, ears, and throat are unremarkable. Neck is supple. No lymphadenopathy. No bruits are heard over the carotid artery. No crepitus. Cardiovascular: S1, S2, regular rate and rhythm. Pulmonary: Clear to auscultation bilaterally. Abdomen: Bowel sounds are positive. Abdomen is soft, nontender, and nondistended. Extremities: No rash, lesions. No restriction of range of motion NEUROLOGICAL EXAMINATION: Alert Oriented to time, place and person. PERRL. EOMI. CN: no focal findings. Muscle tone: within normal. Muscle strength: 5 DTR: 0-1 due to obesity. Plantar reflex: Flexor response bilaterally Gait: at his baseline normal. Sensory exam: no abnormal findings. No cerebellar signs elicited. F-T-N test fine. Objective Objective Vital Signs Date Time Temp Pulse Resp B/P (MAP) Pulse Ox O2 Delivery O2 Flow Rate FiO2 10/07/18 10:34 Room Air 10/07/18 10:31 80 146/85 10/07/18 07:00 98.2 20 96 98.2 Intake and Output 10/07/18 07:00 Intake Total 2840 ml Balance 2840 ml Intake Oral 1340 ml IV Total 1500 ml # Voids 2 Vitals Signs Vitals VS - Last 72 Hours, by Label Date Time Temp Pulse Resp B/P (MAP) Pulse Ox O2 Delivery O2 Flow Rate FiO2 10/07/18 10:34 Room Air 10/07/18 10:31 80 146/85 10/07/18 07:00 98.2 80 20 146/85 (105) 96 Room Air 98.2 10/07/18 03:54 97.5 67 16 137/95 (109) 95 BiPAP/CPAP 97.5 10/07/18 01:05 22 Room Air 10/07/18 01:05 22 Room Air 10/06/18 23:16 98.2 63 16 112/74 (87) 98 BiPAP/CPAP 98.2 10/06/18 20:25 Room Air 10/06/18 19:40 98.4 80 16 125/63 (83) 94 Room Air 98.4 10/06/18 15:12 Room Air 10/06/18 15:12 Room Air 10/06/18 14:30 72 117/80 (92) 96 10/06/18 13:30 80 143/89 (107) 10/06/18 13:02 75 10/06/18 12:30 77 149/96 (113) 10/06/18 11:30 80 140/84 (102) 10/06/18 10:30 98.5 82 168/95 (119) 96 Room Air 98.5 10/06/18 08:09 18 10/06/18 07:41 82 22 100 10/06/18 07:39 22 Medication Medications Current Medications Acetaminophen/ Hydrocodone Bitart (Lortab 5/325) 1 tab PRN Q4HRS PRN PO MODERATE-SEVERE PAIN Last administered on 10/07/18 10:34; Start 10/06/18 at 13: 30 Celecoxib (CeleBREX) 200 mg BID PO Last administered on 10/07/18 10:31; Start 10/06/18 at 21:00 Cyclobenzaprine HCl (Flexeril) 10 mg PRN Q12HR PRN PO MUSCLE SPASMS Last administered on 10/07/18 10:32; Start 10/06/18 at 13:30 Info (Anti-Coagulation Monitoring By Pharmacy) 1 each PRN DAILY PRN MC SEE COMMENTS; Start 10/06/18 at 13:45 Lisinopril (Prinivil) 10 mg DAILY PO Last administered on 10/07/18at 10:31; Start 10/07/18 at 09:00 Rivaroxaban (Xarelto) 20 mg DAILYWSUP PO Last administered on 10/06/18at 17:09; Start 10/06/18 at 17:00 Vitamin D (Vitamin D3) 2,000 unit DAILY PO Last administered on 10/07/18at 10:32 ; Start 10/07/18 at 09:00 Comment Review of Relevant I have reviewed the following items rich (where applicable) has been applied. CLIFTON DUCKWORTH MD Oct 07, 2018 12:29
--- NOTE | 2018-10-07 15:40 | PDOC ---
PROGRESS NOTES Subjective Subjective Patient seen at 1210 up in chair with collar mild left sided neck pain Objective Objective Vital Signs Date Time Temp Pulse Resp B/P (MAP) Pulse Ox O2 Delivery O2 Flow Rate FiO2 10/07/18 11:00 98.4 83 18 157/102 (120) 97 Room Air 98.4 Intake and Output 10/07/18 07:00 Intake Total 2840 ml Balance 2840 ml Intake Oral 1340 ml IV Total 1500 ml # Voids 2 Physical Exam General: Alert, Oriented X3, No acute distress MUSCULOSKELETAL: Other (LIAO) Neuro: Normal speech, Other (Cervical collar ) Assessment Assessment Problems Medical Problems: (1) C2 cervical fracture Status: Acute Plan Plan of Care cervical x rays are stable scheduled for echo tomorrow could dc from NS standpoint will follow up in office in 2 weeks with cervical x rays Comment Review of Relevant I have reviewed the following items rich (where applicable) has been applied. Labs Laboratory Tests Test 10/06/18 02:15 10/06/18 03:03 10/06/18 04:20 10/06/18 04:30 Urine Collection Type Unknown Urine Color Yellow Urine Clarity Clear Urine pH 6.0 Urine Specific [place] 1.025 Urine Protein Negative mg/dL (NEG-TRACE) Urine Glucose (UA) Negative mg/dL (NEG) Urine Ketones (Stick) Negative mg/dL (NEG) Urine Blood Small (NEG) Urine Nitrite Negative (NEG) Urine Bilirubin Small (NEG) Urine Urobilinogen Dipstick 1.0 mg/dL (0.2 mg/dL) Urine Leukocyte Esterase Negative (NEG) Urine RBC 1-2 /HPF (0-2) Urine WBC Occ /HPF (0-4) Urine Squamous Epithelial Cells Occ /LPF Urine Bacteria 0 /HPF (0-FEW) Urine Mucus Mod /LPF White Blood Count 10.9 x10^3/uL (4.0-11.0) Red Blood Count 5.11 x10^6/uL (4.30-5.70) Hemoglobin 16.3 g/dL (13.0-17.5) Hematocrit 48.9 % (39.0-53.0) Mean Corpuscular Volume 96 fL (79-100) Mean Corpuscular Hemoglobin 32 pg (25-35) Mean Corpuscular Hemoglobin Concent 33 g/dL (31-37) Red Cell Distribution Width 13.9 % (11.5-14.5) Platelet Count 274 x10^3/uL (140-400) Neutrophils (%) (Auto) 75 % (31-73) Lymphocytes (%) (Auto) 15 % (24-48) Monocytes (%) (Auto) 8 % (0-9) Eosinophils (%) (Auto) 1 % (0-3) Basophils (%) (Auto) 1 % (0-3) Neutrophils # (Auto) 8.2 x10^3uL (1.8-7.7) Lymphocytes # (Auto) 1.6 x10^3/uL (1.0-4.8) Monocytes # (Auto) 0.9 x10^3/uL (0.0-1.1) Eosinophils # (Auto) 0.1 x10^3/uL (0.0-0.7) Basophils # (Auto) 0.1 x10^3/uL (0.0-0.2) Prothrombin Time 14.2 SEC (11.7-14.0) Prothromb Time International Ratio 1.1 (0.8-1.1) Activated Partial Thromboplast Time 34 SEC (24-38) Sodium Level 140 mmol/L (136-145) Potassium Level 3.8 mmol/L (3.5-5.1) Chloride Level 104 mmol/L (98-107) Carbon Dioxide Level 28 mmol/L (21-32) Anion Gap 8 (6-14) Blood Urea Nitrogen 7 mg/dL (8-26) Creatinine 1.0 mg/dL (0.7-1.3) Estimated GFR (Cockcroft-Gault) 78.5 BUN/Creatinine Ratio 7 (6-20) Glucose Level 108 mg/dL (70-99) Calcium Level 8.9 mg/dL (8.5-10.1) Magnesium Level 2.0 mg/dL (1.8-2.4) Total Bilirubin 1.6 mg/dL (0.2-1.0) Aspartate Amino Transf (AST/SGOT) 29 U/L (15-37) Alanine Aminotransferase (ALT/SGPT) 28 U/L (16-63) Alkaline Phosphatase 130 U/L (46-116) Total Protein 7.9 g/dL (6.4-8.2) Albumin 3.4 g/dL (3.4-5.0) Albumin/Globulin Ratio 0.8 (1.0-1.7) Creatine Kinase 593 U/L (39-308) Creatine Kinase MB (Mass) 3.5 ng/mL (0.0-3.6) Creatine Kinase MB Relative Index 0.6 % (0-4) Troponin I Quantitative < 0.017 ng/mL (0.000-0.055) Medications Current Medications Acetaminophen/ Hydrocodone Bitart (Lortab 10/325) 1 tab 1X ONCE PO ; Start at 02:15; Stop 10/06/18 at 02:16; Status UNV Sodium Chloride 1,000 ml @ 100 mls/hr 1X ONCE IV Last administered on at 06:15; Start 10/06/18 at 02:30; Stop 10/06/18 at 12:29; Status DC Fentanyl Citrate (Fentanyl 2ml Vial) 50 mcg 1X ONCE IV Last administered on at 03:14; Start 10/06/18 at 02:30; Stop 10/06/18 at 02:32; Status DC Sodium Chloride 1,000 ml @ 1,000 mls/hr 1X ONCE IV Last administered on at 03:15; Start 10/06/18 at 02:45; Stop 10/06/18 at 03:44; Status DC Ondansetron HCl (Zofran) 4 mg PRN Q8HRS PRN IV NAUSEA/VOMITING; Start 10/06/18 at 02:45; Stop 10/07/18 at 02:44; Status DC Fentanyl Citrate (Fentanyl 2ml Vial) 50 mcg PRN Q2HR PRN IV PAIN Last administered on 10/07/18at 01:05; Start 10/06/18 at 02:45 Iohexol (Omnipaque 350 Mg/ml) 100 ml 1X ONCE IV Last administered on at 05:20; Start 10/06/18 at 04:45; Stop 10/06/18 at 04:46; Status DC Info (CONTRAST GIVEN -- Rx MONITORING) 1 each PRN DAILY PRN MC SEE COMMENTS; Start 10/06/18 at 04:45; Stop 10/08/18 at 04:44 Sodium Chloride (Normal Saline Flush 3ml) 3 ml QSHIFT PRN IV AFTER MEDS AND BLOOD DRAWS; Start 10/06/18 at 11:15 Sodium Chloride 1,000 ml @ 100 mls/hr Q10H IV Last administered on 10/07/18at 01:06; Start 10/06/18 at 11:05 Ondansetron HCl (Zofran) 4 mg PRN Q4HRS PRN IV NAUSEA/VOMITING; Start 10/06/18 at 11:15 Acetaminophen (Tylenol) 650 mg PRN Q4HRS PRN PO TEMP OVER 100.4F OR MILD PAIN; Start 10/06/18 at 11:15 Al Hydroxide/Mg Hydroxide (Mylanta Plus Xs) 30 ml PRN DAILY PRN PO HEARTBURN / GAS; Start 10/06/18 at 11:15 Clonidine HCl (Catapres) 0.1 mg PRN Q6HRS PRN PO SBP>160 OR DBP>90; Start 10/06 at 11:15 Docusate Sodium (Colace) 100 mg PRN BID PRN PO CONSTIPATION Last administered on 10/07/18at 10:49; Start 10/06/18 at 11:15 Albuterol Sulfate (Ventolin Neb Soln) 2.5 mg PRN Q4HRS PRN NEB SHORTNESS OF BREATH; Start 10/06/18 at 11:15 Guaifenesin (Robitussin) 200 mg PRN Q4HRS PRN PO COUGH; Start 10/06/18 at 11:15 Lorazepam (Ativan) 0.5 mg PRN Q4HRS PRN PO ANXIETY / AGITATION; Start 10/06/18 at 11:15 Hydromorphone HCl (Dilaudid) 1 mg PRN Q2HRS PRN IV SEVERE PAIN; Start 10/06/18 at 11:15 Hydralazine HCl (Apresoline Inj) 10 mg PRN Q4HRS PRN IVP ELEVATED BP, SEE COMMENTS; Start 10/06/18 at 11:15 Lisinopril (Prinivil) 10 mg DAILY PO Last administered on 10/07/18at 10:31; Start 10/07/18 at 09:00 Lisinopril (Prinivil) 10 mg 1X ONCE PO Last administered on 10/06/18at 13:02; Start 10/06/18 at 11:30; Stop 10/06/18 at 11:31; Status DC Cyclobenzaprine HCl (Flexeril) 10 mg PRN Q12HR PRN PO MUSCLE SPASMS Last administered on 10/07/18 10:32; Start 10/06/18 at 13:30 Acetaminophen/ Hydrocodone Bitart (Lortab 5/325) 1 tab PRN Q4HRS PRN PO MODERATE-SEVERE PAIN Last administered on 10/07/18at 10:34; Start 10/06/18 at 13: 30 Vitamin D (Vitamin D3) 2,000 unit DAILY PO Last administered on 10/07/18at 10:32 ; Start 10/07/18 at 09:00 Celecoxib (CeleBREX) 200 mg BID PO Last administered on 10/07/18 10:31; Start 10/06/18 at 21:00 Rivaroxaban (Xarelto) 20 mg DAILYWSUP PO Last administered on 10/06/18 17:09; Start 10/06/18 at 17:00 Info (Anti-Coagulation Monitoring By Pharmacy) 1 each PRN DAILY PRN MC SEE COMMENTS; Start 10/06/18 at 13:45 Active Scripts Active Reported Celebrex (Celecoxib) 200 Mg Capsule 200 Mg PO BID 30 Days Xarelto (Rivaroxaban) 20 Mg Tablet 20 Mg PO DAILY Vitamin D3 (Cholecalciferol (Vitamin D3)) 1,000 Unit Tablet 2,000 Unit PO DAILY Vitals/I & O Vital Sign - Last 24 Hours 10/06/18 10/06/18 10/06/18 10/07/18 19:40 20:25 23:16 01:05 Temp 98.4 98.2 98.4 98.2 Pulse 80 63 Resp 16 16 22 B/P (MAP) 125/63 (83) 112/74 (87) Pulse Ox 94 98 O2 Delivery Room Air Room Air BiPAP/CPAP Room Air 10/07/18 10/07/18 10/07/18 10/07/18 01:05 03:54 07:00 08:00 Temp 97.5 98.2 97.5 98.2 Pulse 67 80 Resp 22 16 20 B/P (MAP) 137/95 (109) 146/85 (105) Pulse Ox 95 96 O2 Delivery Room Air BiPAP/CPAP Room Air Room Air 10/07/18 10/07/18 10/07/18 10:31 10:34 11:00 Temp 98.4 98.4 Pulse 80 83 Resp 18 B/P (MAP) 146/85 157/102 (120) Pulse Ox 97 O2 Delivery Room Air Room Air Intake and Output 10/06/18 10/06/18 10/07/18 15:00 23:00 07:00 Intake Total 620 ml 460 ml 1760 ml Balance 620 ml 460 ml 1760 ml MARI ARROYO MD Oct 07, 2018 15:40
[2018-10-07] MEDS: RIVAROXABAN 10 MG TABLET. PO SCH (18:50)
[2018-10-08 03:55] VITALS: BP 149/98
[2018-10-08 07:00] VITALS: BP 136/86
--- NOTE | 2018-10-08 07:13 | CONS ---
DATE OF CONSULTATION: 10/06/2018 REASON FOR CONSULTATION: Cervical fracture. 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 I saw him on 10/06/2018. He relates that he was walking outside of his car. He was entering in the garage and he lost his footing and fell forward. He struck his head and it caused his head to extend, he developed immediate neck pain and headache. He is on Xarelto for chronic DVT problems. He was seen in the Emergency Room and then transferred here because of difficulties on imaging him because of his size. He did not notice any problems with numbness or weakness in upper and lower extremities. The principal problem was neck pain, which was mild to moderate along with head pain. On the imaging studies, there was no intracranial pathology seen; however, there was a C2 fracture and he was admitted for further evaluation and treatment. PAST MEDICAL HISTORY: Problems with DVT, obesity. PAST SURGICAL HISTORY: Cholecystectomy and tonsillectomy. CURRENT MEDICATIONS: Reviewed on the MRAD, he does take Xarelto at home. ALLERGIES: No known drug allergies identified. 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 He lives at home with his mother. FAMILY HISTORY: Heart disease, REVIEW OF SYSTEMS: A 12-points was performed and was negative except for problems relating to venous insufficiency of both of his lower extremities and problems with DVT in the right lower extremity. PHYSICAL EXAMINATION: GENERAL: He is in a [place] type collar which I loosened and then palpated the posterior aspect of the neck, there was no significant tenderness. HEENT: Head is normocephalic. There was an abrasion/small laceration over his left posterior frontal region. Otherwise, HEENT was negative. NEUROLOGIC: Motor examination, his strength was 5/5 in upper and lower extremities bilaterally. On sensory examination was intact to light touch in the upper and lower extremities bilaterally. There were changes of chronic venous insufficiency, both of his lower extremities. He was areflexic throughout. There were no pathologic reflexes. There was full range of motion of upper and lower extremities bilaterally. IMAGING: I reviewed CT scan of the head, which I felt that showed no acute pathology. On the CT scan of the cervical spine, there is a fracture in the anterior, inferior, body of C2 with minimal amount of offset. He has ankylosing spondylitis and appears to have at least a moderate amount of cervical spinal stenosis throughout. ASSESSMENT/ PLAN: C2 fracture and ankylosing spondylitis, because of his size, I do not feel with his MRI can be performed. The portion of the fracture does extend to the foramen and transversarium on the right. On CTA which he had done, shows no evidence of a dissection or other significant abnormality. From my standpoint, will obtain a better fitting collar for him, which he will need to wear religiously for the present, we will obtain cervical spine x-rays on 10/07/2018 after he has been in the collar and has increased his activities to ensure that there was no significant motion and these were done today and they show no significant changes. Therefore, following his medical evaluation from my standpoint, he can be discharged to outpatient after medically cleared. I asked him to follow up to wear his collar continuously and limit his lifting in his activities and not to return to work and he will see us in 2 weeks with cervical spine films. I appreciate very much you asking us to see. MARI ARROYO MD DR: KAYLA/sukhdeep JOB#: [id number] / [id number] BRENNAN
[2018-10-08] MEDS: LISINOPRIL 10 MG TABLET PO SCH (08:43)
[2018-10-08] MEDS: CELECOXIB 100 MG CAPSULE. PO SCH ×2 (08:43→19:39)
[2018-10-08] MEDS: CHOLECALCIFEROL (VITAMIN D3) 1,000 UNIT TABLET PO SCH (08:43)
[2018-10-08] MEDS: HYDROcodone/APAP 5/325MG 1 TAB TABLET PO PRN ×2 (08:45→19:40)
[2018-10-08] MEDS: CYCLOBENZAPRINE 10 MG TABLET. PO PRN (08:45)
[2018-10-08] MEDS: DOCUSATE SODIUM 100 MG CAPSULE. PO PRN (08:46)
--- NOTE | 2018-10-08 09:14 | PDOC ---
PROGRESS NOTES Subjective Subjective He admits neck and upper back muscle spasms. Objective Objective Vital Signs Date Time Temp Pulse Resp B/P (MAP) Pulse Ox O2 Delivery O2 Flow Rate FiO2 10/08/18 08:45 Room Air 10/08/18 08:43 71 136/86 10/08/18 07:00 97.7 20 98 97.7 Intake and Output 10/08/18 06:59 Intake Total 680 ml Balance 680 ml Intake Oral 680 ml # Voids 1 Physical Exam Physical Exam He is up walking in his room by himself with cervical collar in place and had tenderness to palpation over upper trapezius muscles. Assessment Assessment Problems Medical Problems: (1) C2 cervical fracture Status: Acute Plan Plan of [facility] with out patient follow up when medically stable. Comment Review of Relevant I have reviewed the following items rich (where applicable) has been applied. Labs Laboratory Tests Test 10/06/18 10:20 Nasal Screen MRSA (PCR) Negative (Negative) Medications Current Medications Acetaminophen/ Hydrocodone Bitart (Lortab 10/325) 1 tab 1X ONCE PO ; Start at 02:15; Stop 10/06/18 at 02:16; Status UNV Sodium Chloride 1,000 ml @ 100 mls/hr 1X ONCE IV Last administered on at 06:15; Start 10/06/18 at 02:30; Stop 10/06/18 at 12:29; Status DC Fentanyl Citrate (Fentanyl 2ml Vial) 50 mcg 1X ONCE IV Last administered on at 03:14; Start 10/06/18 at 02:30; Stop 10/06/18 at 02:32; Status DC Sodium Chloride 1,000 ml @ 1,000 mls/hr 1X ONCE IV Last administered on at 03:15; Start 10/06/18 at 02:45; Stop 10/06/18 at 03:44; Status DC Ondansetron HCl (Zofran) 4 mg PRN Q8HRS PRN IV NAUSEA/VOMITING; Start 10/06/18 at 02:45; Stop 10/07/18 at 02:44; Status DC Fentanyl Citrate (Fentanyl 2ml Vial) 50 mcg PRN Q2HR PRN IV MODERATE PAIN Last administered on 10/07/18at 01:05; Start 10/06/18 at 02:45 Iohexol (Omnipaque 350 Mg/ml) 100 ml 1X ONCE IV Last administered on at 05:20; Start 10/06/18 at 04:45; Stop 10/06/18 at 04:46; Status DC Info (CONTRAST GIVEN -- Rx MONITORING) 1 each PRN DAILY PRN MC SEE COMMENTS; Start 10/06/18 at 04:45; Stop 10/08/18 at 04:44; Status DC Sodium Chloride (Normal Saline Flush 3ml) 3 ml QSHIFT PRN IV AFTER MEDS AND BLOOD DRAWS; Start 10/06/18 at 11:15 Sodium Chloride 1,000 ml @ 100 mls/hr Q10H IV Last administered on 10/07/18at 01:06; Start 10/06/18 at 11:05; Stop 10/07/18 at 17:34; Status DC Ondansetron HCl (Zofran) 4 mg PRN Q4HRS PRN IV NAUSEA/VOMITING; Start 10/06/18 at 11:15 Acetaminophen (Tylenol) 650 mg PRN Q4HRS PRN PO TEMP OVER 100.4F OR MILD PAIN; Start 10/06/18 at 11:15 Al Hydroxide/Mg Hydroxide (Mylanta Plus Xs) 30 ml PRN DAILY PRN PO HEARTBURN / GAS; Start 10/06/18 at 11:15 Clonidine HCl (Catapres) 0.1 mg PRN Q6HRS PRN PO SBP>160 OR DBP>90; Start 10/06 at 11:15 Docusate Sodium (Colace) 100 mg PRN BID PRN PO CONSTIPATION Last administered on 10/08/18at 08:46; Start 10/06/18 at 11:15 Albuterol Sulfate (Ventolin Neb Soln) 2.5 mg PRN Q4HRS PRN NEB SHORTNESS OF BREATH; Start 10/06/18 at 11:15 Guaifenesin (Robitussin) 200 mg PRN Q4HRS PRN PO COUGH; Start 10/06/18 at 11:15 Lorazepam (Ativan) 0.5 mg PRN Q4HRS PRN PO ANXIETY / AGITATION; Start 10/06/18 at 11:15 Hydromorphone HCl (Dilaudid) 1 mg PRN Q2HRS PRN IV SEVERE PAIN; Start 10/06/18 at 11:15 Hydralazine HCl (Apresoline Inj) 10 mg PRN Q4HRS PRN IVP ELEVATED BP, SEE COMMENTS; Start 10/06/18 at 11:15 Lisinopril (Prinivil) 10 mg DAILY PO Last administered on 10/08/18at 08:43; Start 10/07/18 at 09:00 Lisinopril (Prinivil) 10 mg 1X ONCE PO Last administered on 10/06/18at 13:02; Start 10/06/18 at 11:30; Stop 10/06/18 at 11:31; Status DC Cyclobenzaprine HCl (Flexeril) 10 mg PRN Q12HR PRN PO MUSCLE SPASMS Last administered on 10/08/18 08:45; Start 10/06/18 at 13:30 Acetaminophen/ Hydrocodone Bitart (Lortab 5/325) 1 tab PRN Q4HRS PRN PO MODERATE-SEVERE PAIN Last administered on 10/08/18 08:45; Start 10/06/18 at 13: 30 Vitamin D (Vitamin D3) 2,000 unit DAILY PO Last administered on 10/08/18 08:43 ; Start 10/07/18 at 09:00 Celecoxib (CeleBREX) 200 mg BID PO Last administered on 10/08/18 08:43; Start 10/06/18 at 21:00 Rivaroxaban (Xarelto) 20 mg DAILYWSUP PO Last administered on 10/07/18at 18:50; Start 10/06/18 at 17:00 Info (Anti-Coagulation Monitoring By Pharmacy) 1 each PRN DAILY PRN MC SEE COMMENTS; Start 10/06/18 at 13:45 Active Scripts Active Reported Celebrex (Celecoxib) 200 Mg Capsule 200 Mg PO BID 30 Days Xarelto (Rivaroxaban) 20 Mg Tablet 20 Mg PO DAILY Vitamin D3 (Cholecalciferol (Vitamin D3)) 1,000 Unit Tablet 2,000 Unit PO DAILY Vitals/I & O Vital Sign - Last 24 Hours 10/07/18 10/07/18 10/07/18 10/07/18 10:31 10:34 11:00 15:00 Temp 98.4 98.5 98.4 98.5 Pulse 80 83 79 Resp 18 20 B/P (MAP) 146/85 157/102 (120) 141/90 (107) Pulse Ox 97 96 O2 Delivery Room Air Room Air Room Air 10/07/18 10/07/18 10/07/18 10/07/18 19:38 20:00 22:01 23:21 Temp 98.6 97.4 98.6 97.4 Pulse 78 69 Resp 20 18 18 B/P (MAP) 138/85 (102) 148/95 (112) Pulse Ox 96 97 O2 Delivery Room Air Room Air Room Air BiPAP/CPAP 10/08/18 10/08/18 10/08/18 10/08/18 03:55 07:00 08:43 08:45 Temp 97.5 97.7 97.5 97.7 Pulse 65 71 71 Resp 20 20 B/P (MAP) 149/98 (115) 136/86 (103) 136/86 Pulse Ox 98 98 O2 Delivery BiPAP/CPAP BiPAP/CPAP Room Air Intake and Output 10/07/18 10/07/18 10/08/18 14:59 22:59 06:59 Intake Total 200 ml 480 ml Balance 200 ml 480 ml GIORGIO BELTRAN MD Oct 08, 2018 09:14
[2018-10-08] MEDS ORDERED: CYCLOBENZAPRINE 10 MG TABLET. PO PRN (09:30)
[2018-10-08] MEDS ORDERED: PERFLUTREN PROTEIN-A MICROSPHR 0.22 MG/ML 3 ML VIAL. IV ONE (10:13)
[2018-10-08] MEDS ORDERED: PERFLUTREN PROTEIN-A MICROSPHR 0.22 MG/ML 3 ML VIAL. IV PRN (10:45)
--- NOTE | 2018-10-08 10:57 | CARD ---
MR#: [id number] Date of Study: 10/08/2018 Ordering Physician: LILLIAN LIU, Referring Physician: LILLIAN LIU Tech: Danya Barclay RDCS APPROVED REPORT EXAM: Two-dimensional echocardiogram with contrast. Other Information Quality : Technically LimitedHR: 84bpm Rhythm : NSRTechnically limited study due to body habitus. INDICATION Chest Pain Echo Enhancing Agent Indication: Endocardial border delineation Agent/Amount Used: Optison 1mL RISK FACTORS Obesity 2D DIMENSIONS RVDd2.4 (2.9-3.5cm)Left Atrium(2D)3.4 (1.6-4.0cm) IVSd1.1 (0.7-1.1cm)Aortic Root(2D)3.5 (2.0-3.7cm) LVDd6.1 (3.9-5.9cm)LVOT Diameter2.4 (1.8-2.4cm) PWd1.3 (0.7-1.1cm)LVDs4.4 (2.5-4.0cm) FS (%) 27.7 %SV99.2 ml LVEF(%)52.8 (>50%) M-Mode DIMENSIONS Left Atrium(MM)4.66 (2.5-4.0cm)Aortic Root4.16 (2.2-3.7cm) Aortic Valve AoV Peak Rafi.137.0cm/sAoV VTI26.7cm AO Peak GR.7.5mmHgLVOT Peak Rafi.122.9cm/s AO Mean GR.4mmHgAVA (VMAX)4.19cm2 MOJGAN (VTI)4.00cm2 Mitral Valve MV E Zjspnfii23.2cm/sMV E Peak Gr.5mmHg MV DECEL [id number] A Eywhslqd11.8cm/s MV E Mean Gr.2mmHgE/A Ratio0.9 MV A [id number] Pulmonary Valve PV Peak Afocprsi398.4cm/s LEFT VENTRICLE The Left Ventricle is mildly dilated. There is mild concentric left ventricular hypertrophy. The left ventricular systolic function is normal and the ejection fraction is within normal range. The Ejecti on Fraction is 55%. There is normal LV segmental wall motion. Transmitral Doppler flow pattern is Gra de I-abnormal relaxation pattern. RIGHT VENTRICLE The right ventricle is not well visualized. The right ventricle is normal size. The right ventricular systolic function is normal. ATRIA The left atrium size is normal. The right atrium size is normal. The interatrial septum is intact wit h no evidence for an atrial septal defect or patent foramen ovale as noted on 2-D or Doppler imaging. AORTIC VALVE The aortic valve is normal in structure and function. The aortic valve is trileaflet. Doppler and Col or Flow revealed no significant aortic regurgitation. There is no significant aortic valvular stenosi s. MITRAL VALVE The mitral valve is normal in structure and function. There is no evidence of mitral valve prolapse. There is no mitral valve stenosis. Doppler and Color Flow revealed no mitral valve regurgitation note d. TRICUSPID VALVE The tricuspid valve is not well visualized. Doppler and Color Flow revealed no tricuspid valve regurg itation noted. There is no tricuspid valve prolapse or vegetation. PULMONIC VALVE The pulmonic valve is not well visualized. GREAT VESSELS The aortic root is normal in size. The ascending aorta is normal in size. Due to poor image quality, the IVC could not be assessed. PERICARDIAL EFFUSION There is no evidence of significant pericardial effusion. Critical Notification Critical Value: No <Conclusion> The left ventricular systolic function is normal and the ejection fraction is within normal range. Th e Ejection Fraction is 55%. There is normal LV segmental wall motion. Signed by : Joseph Mayo, Electronically Approved : 10/08/2018 10:57:16
[2018-10-08 11:00] VITALS: BP 149/92
--- NOTE | 2018-10-08 11:33 | PDOC ---
PROGRESS NOTES Subjective Subjective sitting on side of bed denies significant neck pain reports occasional spasms in neck Objective Objective Vital Signs Date Time Temp Pulse Resp B/P (MAP) Pulse Ox O2 Delivery O2 Flow Rate FiO2 10/08/18 08:45 Room Air 10/08/18 08:43 71 136/86 10/08/18 07:00 97.7 20 98 97.7 Intake and Output 10/08/18 07:00 Intake Total 680 ml Balance 680 ml Intake Oral 680 ml # Voids 1 Physical Exam General: Alert, Oriented X3, Cooperative, No acute distress Neck: Other (hard collar on) Neuro: Strength at 5/5 X4 ext Assessment Assessment Problems Medical Problems: (1) C2 cervical fracture Status: Acute Plan Plan of Care may dc from NS standpoint will need to follow up in 2 weeks with cervical x rays will need to remain off work left message with [facility] for additional hard collar Comment Review of Relevant I have reviewed the following items rich (where applicable) has been applied. Medications Current Medications Acetaminophen/ Hydrocodone Bitart (Lortab 10/325) 1 tab 1X ONCE PO ; Start 10/06/18 at 02:15; Stop 10/06/18 at 02:16; Status UNV Sodium Chloride 1,000 ml @ 100 mls/hr 1X ONCE IV Last administered on 10/06/18at 06:15; Start 10/06/18 at 02:30; Stop 10/06/18 at 12:29; Status DC Fentanyl Citrate (Fentanyl 2ml Vial) 50 mcg 1X ONCE IV Last administered on 10/06/18at 03:14; Start 10/06/18 at 02:30; Stop 10/06/18 at 02:32; Status DC Sodium Chloride 1,000 ml @ 1,000 mls/hr 1X ONCE IV Last administered on 10/06/18at 03:15; Start 10/06/18 at 02:45; Stop 10/06/18 at 03:44; Status DC Ondansetron HCl (Zofran) 4 mg PRN Q8HRS PRN IV NAUSEA/VOMITING; Start 10/06/18 at 02:45; Stop 10/07/18 at 02:44; Status DC Fentanyl Citrate (Fentanyl 2ml Vial) 50 mcg PRN Q2HR PRN IV MODERATE PAIN Last administered on 10/07/18at 01:05; Start 10/06/18 at 02:45 Iohexol (Omnipaque 350 Mg/ml) 100 ml 1X ONCE IV Last administered on 10/06/18at 05:20; Start 10/06/18 at 04:45; Stop 10/06/18 at 04:46; Status DC Info (CONTRAST GIVEN -- Rx MONITORING) 1 each PRN DAILY PRN MC SEE COMMENTS; Start 10/06/18 at 04:45; Stop 10/08/18 at 04:44; Status DC Sodium Chloride (Normal Saline Flush 3ml) 3 ml QSHIFT PRN IV AFTER MEDS AND BLOOD DRAWS; Start 10/06/18 at 11:15 Sodium Chloride 1,000 ml @ 100 mls/hr Q10H IV Last administered on 10/07/18at 01:06; Start 10/06/18 at 11:05; Stop 10/07/18 at 17:34; Status DC Ondansetron HCl (Zofran) 4 mg PRN Q4HRS PRN IV NAUSEA/VOMITING; Start 10/06/18 at 11:15 Acetaminophen (Tylenol) 650 mg PRN Q4HRS PRN PO TEMP OVER 100.4F OR MILD PAIN; Start 10/06/18 at 11:15 Al Hydroxide/Mg Hydroxide (Mylanta Plus Xs) 30 ml PRN DAILY PRN PO HEARTBURN / GAS; Start 10/06/18 at 11:15 Clonidine HCl (Catapres) 0.1 mg PRN Q6HRS PRN PO SBP>160 OR DBP>90; Start 10/06/18 at 11:15 Docusate Sodium (Colace) 100 mg PRN BID PRN PO CONSTIPATION Last administered on 10/08/18at 08:46; Start 10/06/18 at 11:15 Albuterol Sulfate (Ventolin Neb Soln) 2.5 mg PRN Q4HRS PRN NEB SHORTNESS OF BREATH; Start 10/06/18 at 11:15 Guaifenesin (Robitussin) 200 mg PRN Q4HRS PRN PO COUGH; Start 10/06/18 at 11:15 Lorazepam (Ativan) 0.5 mg PRN Q4HRS PRN PO ANXIETY / AGITATION; Start 10/06/18 at 11:15 Hydromorphone HCl (Dilaudid) 1 mg PRN Q2HRS PRN IV SEVERE PAIN; Start 10/06/18 at 11:15 Hydralazine HCl (Apresoline Inj) 10 mg PRN Q4HRS PRN IVP ELEVATED BP, SEE COMMENTS; Start 10/06/18 at 11:15 Lisinopril (Prinivil) 10 mg DAILY PO Last administered on 10/08/18at 08:43; Start 10/07/18 at 09:00 Lisinopril (Prinivil) 10 mg 1X ONCE PO Last administered on 10/06/18at 13:02; Start 10/06/18 at 11:30; Stop 10/06/18 at 11:31; Status DC Cyclobenzaprine HCl (Flexeril) 10 mg PRN Q12HR PRN PO MUSCLE SPASMS Last administered on 10/08/18 08:45; Start 10/06/18 at 13:30; Stop 10/08/18 at 09:16; Status DC Acetaminophen/ Hydrocodone Bitart (Lortab 5/325) 1 tab PRN Q4HRS PRN PO MODERATE-SEVERE PAIN Last administered on 10/08/18at 08:45; Start 10/06/18 at 13:30 Vitamin D (Vitamin D3) 2,000 unit DAILY PO Last administered on 10/08/18at 08:43; Start 10/07/18 at 09:00 Celecoxib (CeleBREX) 200 mg BID PO Last administered on 10/08/18at 08:43; Start 10/06/18 at 21:00 Rivaroxaban (Xarelto) 20 mg DAILYWSUP PO Last administered on 10/07/18at 18:50; Start 10/06/18 at 17:00 Info (Anti-Coagulation Monitoring By Pharmacy) 1 each PRN DAILY PRN MC SEE COMMENTS; Start 10/06/18 at 13:45 Cyclobenzaprine HCl (Flexeril) 10 mg PRN Q6HRS PRN PO MUSCLE SPASMS; Start 09/18 08/07 at 09:30 Perflutren Protein Type A Microsphe (Optison) 0.66 mg STK-MED ONCE IV ; Start 10/08/18 at 10:13; Stop 10/08/18 at 10:14; Status DC Perflutren Protein Type A Microsphe (Optison) 0.66 mg PRN 1X PRN IV SEE COMMENTS Last administered on 10/08/18at 10:47; Start 10/08/18 at 10:45; Stop 10/09/18 at 10:44 Active Scripts Active Reported Celebrex (Celecoxib) 200 Mg Capsule 200 Mg PO BID 30 Days Xarelto (Rivaroxaban) 20 Mg Tablet 20 Mg PO DAILY Vitamin D3 (Cholecalciferol (Vitamin D3)) 1,000 Unit Tablet 2,000 Unit PO DAILY Vitals/I & O Vital Sign - Last 24 Hours 10/07/18 10/07/18 10/07/18 10/07/18 15:00 19:38 20:00 22:01 Temp 98.5 98.6 98.5 98.6 Pulse 79 78 Resp 20 20 18 B/P (MAP) 141/90 (107) 138/85 (102) Pulse Ox 96 96 O2 Delivery Room Air Room Air Room Air Room Air 10/07/18 10/08/18 10/08/18 10/08/18 23:21 03:55 07:00 08:43 Temp 97.4 97.5 97.7 97.4 97.5 97.7 Pulse 69 65 71 71 Resp 18 20 B/P (MAP) 148/95 (112) 149/98 (115) 136/86 (103) 136/86 Pulse Ox 97 98 98 O2 Delivery BiPAP/CPAP BiPAP/CPAP BiPAP/CPAP 10/08/18 08:45 O2 Delivery Room Air Intake and Output 10/07/18 10/07/18 10/08/18 15:00 23:00 07:00 Intake Total 200 ml 480 ml Balance 200 ml 480 ml CONSTANTINE NOEL APRN Oct 08, 2018 11:33
[2018-10-08] MEDS ORDERED: CYCL10TA2 PO (13:22)
[2018-10-08] MEDS ORDERED: TRAM-48 PO (13:22)
--- NOTE | 2018-10-08 13:25 | PDOC3 ---
Discharge Summary Visit Information Date of Admission: Oct 06, 2018 Date of Discharge: Oct 08, 2018 Admitting Diagnosis: fall, neck pain Final Diagnosis 1.Acute traumatic fracture of the C2 vertebra 2. ankylosing spondylitis w/ ossification posterior and diopathic skeletal hyperostosis, 3. extreme morbid obesity, BMI 67 4, hx DVT RIGHT LEG 2017 on xarelto 5. chest wall discomfort from acute fall 6. mild inc CPK, CHK Troponin i OK X 1 7. MCKENZIE 8. MILD Occiput contusion Problems Medical Problems: (1) C2 cervical fracture Status: Acute Brief Hospital Course Allergies Allergies Coded Allergies Type Severity Reaction Last Updated Verified No Known Drug Allergies 10/05/18 No Vital Signs Vital Signs Date Time Temp Pulse Resp B/P (MAP) Pulse Ox O2 Delivery O2 Flow Rate FiO2 10/08/18 11:00 98.0 73 20 149/92 (111) 98 Room Air 98.0 Brief Hospital Course Mr. Dejesus is a 53 old male, admit for neck pain after a fall acute c2 fracture Physiatry and neurosurg consult, no surg plans now, will f/u in 2 weeks with further imaging, Dr. Sánchez may need to operate Discharge Information Condition at Discharge: Improved Follow Up: Weeks Disposition/Orders: D/C to Home Scheduled Celecoxib (Celebrex) 200 Mg Capsule, 200 MG PO BID for pain for 30 Days, Ref 0 (Reported) Entered as Reported by: CHARLIE JOY on 10/06/181324 Last Action: Converted on 10/06/181333 by CHARLIE JOY Cholecalciferol (Vitamin D3) (Vitamin D3) 1,000 Unit Tablet, 2,000 UNIT PO DAILY for supplement, (Reported) Entered as Reported by: CHARLIE JOY on 10/06/181324 Last Action: Continued on 10/06/181333 by CHARLIE JOY Rivaroxaban (Xarelto) 20 Mg Tablet, 20 MG PO DAILY for hx dvt, (Reported) Entered as Reported by: CHARLIE JOY on 10/06/181324 Last Action: Converted on 10/06/181333 by CHARLIE JOY Scheduled PRN Cyclobenzaprine Hcl (Cyclobenzaprine Hcl) 10 Mg Tablet, 10 MG PO PRN Q6HRS PRN for MUSCLE SPASMS, #25 Prescribed by: JOAN OSPINA on 10/08/18 1322 Tramadol Hcl (Ultram) 50 Mg Tablet, 50 MG PO Q6HRS PRN for PAIN, #20 Ref 0 Prescribed by: JOAN OSPINA on 10/08/18 1322 Patient Instructions Patient Instructions > 30 min face to face JOAN SOPINA MD Oct 08, 2018 13:25
--- NOTE | 2018-10-08 14:16 | PDOC ---
PROGRESS NOTES Assessment Assessment C2 fracture. Scalp hematoma. Fall. HTN. Elevated total bilirubin level. Right LE DVT, chronic, on Xarelto. Morbid obesity, BMI 67. RECOMMENDATIONS/PLAN: Consulted NS and Surgery. Treat medical diseases. Weight reduction. OT/PT. FU with NS. FU with PCP. FU with Neurology as needed. 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 He had a fall on 10/05/18 who was reportedly at standing position and fell forward striking the top portion of his head on a wagon wheel. He denies loss of consciousness, and felt that he momentarily "had the wind knocked out of me". He got up by himself feeling mild pain in his head and neck, but he continued physical activity for about 7-8 hours. Due to concerns of ICH because he has been on Xarelto, so he eventually went to [facility] searching medical attention. He was transferred to [facility] as the CT scanner was unable to accommodate his weight in [facility]. He was revealed C2 fracture and scalp hematoma, but no ICH, SAH, or SDH. He is currently in a neck collar and has no other significant complaints. Past Medical History Pulmonary: No pertinent hx, Other (MCKENZIE) Heme/Onc: Other (DVT RIGHT LEG 2017 ON XARELTO) Hepatobiliary: No pertinent hx Psych: No pertinent hx Infectious disease: No pertinent hx Dermatology: Other (VENOUS INSUFF BOTH LOWER LEGS, CHRONIC) Past Surgical History Lap brian, tonsillectomy, plastic surgery on posterior neck Family History Heart Disease, Hypertension Social History ALCOHOL: none Drugs: None ALLERGY: Unknown MEDICATIONS: Refer to [facility] REVIEW OF SYSTEMS: Constitutional: Morbid obesity. Head: head soft tissue injury this time. Skin: No rash. Ear: No infection, tinnitus. Eyes: No vision loss or color blindness. Nose: No bleeding or purulent discharges. Hearing: No hearing decrease. Neck: C2 fracture this time. Cardiac: HTN, HLD. Pulmonary: No pneumonia, COPD. GI: No GI ulcer, GI bleeding. Urinary/genital: No dysuria, incontinence, urinary retention. Endocrinologic: Morbid obesity. Skeletomuscular: No muscular atrophy, deformity. Neurological: see HP. Psychiatric: Denies drug use/abuse. Otherwise, not [id number]-manal review of systems. PHYSICAL EXAMINATION: General appearance is in subacute distress. HEENT: Normocephalic and nontraumatic. Eyes, nose, ears, and throat are unr emarkable. Neck is supple. No lymphadenopathy. No bruits are heard over the carotid artery. No crepitus. Cardiovascular: S1, S2, regular rate and rhythm. Pulmonary: Clear to auscultation bilaterally. Abdomen: Bowel sounds are positive. Abdomen is soft, nontender, and nondistended. Extremities: No rash, lesions. No restriction of range of motion NEUROLOGICAL EXAMINATION: Alert Oriented to time, place and person. PERRL. EOMI. CN: no focal findings. Muscle tone: within normal. Muscle strength: 5 DTR: 0-1 due to obesity. Plantar reflex: Flexor response bilaterally Gait: at his baseline normal. Sensory exam: no abnormal findings. No cerebellar signs elicited. F-T-N test fine. Objective Objective Vital Signs Date Time Temp Pulse Resp B/P (MAP) Pulse Ox O2 Delivery O2 Flow Rate FiO2 10/08/18 11:00 98.0 73 20 149/92 (111) 98 Room Air 98.0 Intake and Output 10/08/18 07:00 Intake Total 680 ml Balance 680 ml Intake Oral 680 ml # Voids 1 Vitals Signs Vitals VS - Last 72 Hours, by Label Date Time Temp Pulse Resp B/P (MAP) Pulse Ox O2 Delivery O2 Flow Rate FiO2 10/08/18 11:00 98.0 73 20 149/92 (111) 98 Room Air 98.0 10/08/18 08:45 Room Air 10/08/18 08:43 71 136/86 10/08/18 08:00 Room Air 10/08/18 07:00 97.7 71 20 136/86 (103) 98 BiPAP/CPAP 97.7 10/08/18 03:55 97.5 65 20 149/98 (115) 98 BiPAP/CPAP 97.5 10/07/18 23:21 97.4 69 18 148/95 (112) 97 BiPAP/CPAP 97.4 10/07/18 22:01 18 Room Air 10/07/18 20:00 Room Air 10/07/18 19:38 98.6 78 20 138/85 (102) 96 Room Air 98.6 10/07/18 15:00 98.5 79 20 141/90 (107) 96 Room Air 98.5 10/07/18 11:00 98.4 83 18 157/102 (120) 97 Room Air 98.4 10/07/18 10:34 Room Air 10/07/18 10:31 80 146/85 10/07/18 08:00 Room Air 10/07/18 07:00 98.2 80 20 146/85 (105) 96 Room Air 98.2 Medication Medications Current Medications Cyclobenzaprine HCl (Flexeril) 10 mg PRN Q6HRS PRN PO MUSCLE SPASMS; Start 10/08/18 at 09:30 Perflutren Protein Type A Microsphe (Optison) 0.66 mg PRN 1X PRN IV SEE COMMENTS Last administered on 10/08/18at 10:47; Start 10/08/18 at 10:45; Stop 10/09/18 at 10:44 Perflutren Protein Type A Microsphe (Optison) 0.66 mg STK-MED ONCE IV ; Start 10/08/18 at 10:13; Stop 10/08/18 at 10:14; Status DC Comment Review of Relevant I have reviewed the following items rich (where applicable) has been applied. CLIFTON DUCKWORTH MD Oct 08, 2018 14:16
[2018-10-08 15:00] VITALS: BP 129/82
[2018-10-08] MEDS: RIVAROXABAN 10 MG TABLET. PO SCH (17:52)
--- NOTE | 2018-10-08 20:52 | NUR ---
Patient ambulated with sister at discharge at 2044. Patients IV has been removed and she took all of his belonging with him.
== END 2018-10-08 20:57 | disposition home or self-care (01) | DRG 552 ==
LOC: ER 22:43 → ED HOLD 10-06 02:33 → 1 WEST ICU 10-06 10:29 → 6 SOUTH 10-06 15:31
PROVIDERS: ADMIT Family Medicine; ATTEND Family Medicine
PROC: 5A09357 Assistance with Respiratory Ventilation, Less than 24 Consecutive Hours, Continuous Positive Airway Pressure (ICD-10-PCS; principal; 2018-10-06)
PROC: 5A09357 Assistance with Respiratory Ventilation, Less than 24 Consecutive Hours, Continuous Positive Airway Pressure (ICD-10-PCS; 2018-10-07)
DX: S12.100A Unspecified displaced fracture of second cervical vertebra, initial encounter for closed fracture (principal); Z68.44 Body mass index [BMI] 60.0-69.9, adult; M45.2 Ankylosing spondylitis of cervical region; E66.01 Morbid (severe) obesity due to excess calories; W01.0XXA Fall on same level from slipping, tripping and stumbling without subsequent striking against object, initial encounter; M48.10 Ankylosing hyperostosis [Forestier], site unspecified; G47.33 Obstructive sleep apnea (adult) (pediatric); S00.83XA Contusion of other part of head, initial encounter; I10 Essential (primary) hypertension; S00.03XA Contusion of scalp, initial encounter; M17.0 Bilateral primary osteoarthritis of knee; I87.2 Venous insufficiency (chronic) (peripheral); Z90.49 Acquired absence of other specified parts of digestive tract; Z79.01 Long term (current) use of anticoagulants; Y93.89 Activity, other specified; Y92.89 Other specified places as the place of occurrence of the external cause; Y99.8 Other external cause status; Z86.718 Personal history of other venous thrombosis and embolism; Z82.49 Family history of ischemic heart disease and other diseases of the circulatory system; Z86.711 Personal history of pulmonary embolism; Z91.81 History of falling; M48.12 Ankylosing hyperostosis [Forestier], cervical region
CPT/HCPCS: 99285; C8929; 36415; 70450; 70496; 70498; 72040; 72125; 80053; 81001; 82553; 83735; 84484; 85025; 85610; 85730; 87641; 93005; 96361; 96374; J3010; J7030; Q9956; Q9967

== ENCOUNTER → 2018-10-23 | Outpatient (CLI) | payer OTHER ==
[2018-10-08 15:00] VITALS: BP 129/82
[~2018-10-23] MED LIST: CELE200C PO; CHOL10003 PO; CYCL10TA2 PO; RIVA20TA2 PO; TRAM-48 PO
--- NOTE | 2018-10-23 15:56 | RAD ---
EXAM: AP, lateral DATE: 10/23/2018 12:00 AM CLINICAL HISTORY: COMPARISON: None available. FINDINGS: On the lateral view, the cervical spine is imaged from the skull base to C6. Vertebral body heights are preserved. Bulky large flowing anterior ossification likely from DISH. Fracture at the anterior base of the dens is better delineated on prior CT, nondisplaced. No spondylolisthesis. Straightening of the normal cervical lordosis. Normal predental space. No significant prevertebral soft tissue swelling. IMPRESSION: 1. Nondisplaced fracture at the base of C2. 2. Bulky flowing anterior ossification of the cervical spine, DISH Electronically signed by: Ramses Webster MD (10/23/2018 3:52 PM) [id number]
== END | disposition home or self-care (01) ==
LOC: RAD 12:01
PROVIDERS: ATTEND Neurological Surgery
DX: S12.101D Unspecified nondisplaced fracture of second cervical vertebra, subsequent encounter for fracture with routine healing (principal); M48.12 Ankylosing hyperostosis [Forestier], cervical region; X58.XXXD Exposure to other specified factors, subsequent encounter
CPT/HCPCS: 72040

== ENCOUNTER → 2018-11-28 | Outpatient (CLI) | payer OTHER ==
--- NOTE | 2018-11-28 10:08 | RAD ---
Cervical spine, 3 views, 11/28/2018: HISTORY: C2 fracture Comparison is made to a study from 10/23/2018. The fracture line involving the anterior aspect of the C2 vertebral body is no longer visible, suggesting interval healing. There is no evidence of displacement or subluxation at the C2 level. There is extensive bony bridging anteriorly and to a lesser degree posteriorly, from C2 down through C7, again likely due to DISH. There is extensive hypertrophic ossification involving the anterior arch of C1. There are degenerative changes involving scattered facet joints. No new fracture or subluxation is evident. IMPRESSION: 1. Interval healing of the nondisplaced C2 fracture. 2. Extensive hypertrophic degenerative change with bony bridging at multiple levels. 3. No new abnormality is detected. Electronically signed by: Jerry Blackmon MD (11/28/2018 10:05 AM) [facility]
== END | disposition home or self-care (01) ==
LOC: RAD 09:25
PROVIDERS: ATTEND Neurological Surgery
DX: S12.101D Unspecified nondisplaced fracture of second cervical vertebra, subsequent encounter for fracture with routine healing (principal); M47.812 Spondylosis without myelopathy or radiculopathy, cervical region; M89.38 Hypertrophy of bone, other site; X58.XXXD Exposure to other specified factors, subsequent encounter
CPT/HCPCS: 72040

== ENCOUNTER → 2019-01-01 | Outpatient (CLI) | payer OTHER ==
--- NOTE | 2019-01-01 13:36 | RAD ---
Cervical spine CT without contrast History: C2 fracture Technique: Noncontrast CT imaging was performed of the cervical spine. Multiplanar images are reviewed. Exposure: One or more of the following individualized dose reduction techniques were utilized for this examination: 1. Automated exposure control 2. Adjustment of the mA and/or kV according to patient size 3. Use of iterative reconstruction technique. Comparison: October 06, 2018 CT. Radiographs November 28, 2018. Findings: Healing anterior C2 vertebral body fracture. The fracture line is still evident. Unchanged alignment. Right C2 pedicle fracture appears healed. Extensive ossification of posterior longitudinal ligament spanning the C2-C5 level. This contributes to mild canal narrowing and probable cord flattening. Extensive DISH related changes of the cervical spine. Multilevel degenerative disc changes throughout the cervical spine. Partial left facet fusion C3-C4 and C4-C5. Multilevel bony neural foraminal narrowing most prominent left C2-C3 and C3-C4. Impression: 1. Healing anterior inferior C2 fracture, unchanged alignment. 2. Healed right C2 pedicle fracture. 3. Ossification of posterior longitudinal ligament contributing to multilevel canal narrowing and probable cord flattening. 4. DISH related changes with multilevel cervical spondylosis. Electronically signed by: Francisco Fulton DO (01/01/2019 1:34 PM) [id number]
== END | disposition home or self-care (01) ==
LOC: CT 12:09
PROVIDERS: ATTEND Neurological Surgery
DX: S12.100D Unspecified displaced fracture of second cervical vertebra, subsequent encounter for fracture with routine healing (principal); M48.02 Spinal stenosis, cervical region; M47.812 Spondylosis without myelopathy or radiculopathy, cervical region; X58.XXXD Exposure to other specified factors, subsequent encounter
CPT/HCPCS: 72125

== ENCOUNTER 2021-08-03 15:31 | Observation (INO) | payer OTHER ==
[~2021-08-03] VITALS: Ht 188 cm; Wt 232.7 kg
[~2021-08-03 15:31] MED LIST changes: +CYCL10TA19 PO; -CYCL10TA2 PO
[2021-08-03] MEDS ORDERED: MORPHINE SULFATE 4 MG/ML INJ. IV/SQ PRN (16:00)
[2021-08-03] MEDS ORDERED: NITROGLYCERIN SUBLINGUAL 0.4 MG BOTTLE OF 25. SL PRN ×2 (16:00→21:00)
[2021-08-03 16:36] LABS: BASO # 0.1 x10^3/uL (0.0-0.2); BASO % 1 % (0-3); EOS # 0.2 x10^3/uL (0.0-0.7); EOS % 2 % (0-3); HEMATOCRIT 41.2 % (39.0-53.0); HEMOGLOBIN 13.7 g/dL (13.0-17.5); LYMPH # 1.7 x10^3/uL (1.0-4.8); LYMPH % 18 % (24-48); MEAN CORPUSCULAR HEMOGLOBIN 32 pg (25-35); MEAN CORPUSCULAR HGB CONC 33 g/dL (31-37); MEAN CORPUSCULAR VOLUME 96 fL (79-100); MONO # 0.8 x10^3/uL (0.0-1.1); MONO % 9 % (0-9); NEUT # 6.7 x10^3/uL (1.8-7.7); NEUT % 71 % (31-73); PLATELET COUNT 291 x10^3/uL (140-400); RED CELL DISTRIBUTION WIDTH 14.7 % (11.5-14.5); WHITE BLOOD COUNT 9.6 x10^3/uL (4.0-11.0)
[2021-08-03 16:58] LABS: CREATININE 1.1 mg/dL (0.7-1.3); GFR 69.5; POTASSIUM 3.9 mmol/L (3.5-5.1)
[2021-08-03 17:00] LABS: ALBUMIN 2.9 g/dL (3.4-5.0); ALBUMIN/GLOBULIN RATIO 0.6 (1.0-1.7); MAGNESIUM 1.9 mg/dL (1.8-2.4); TOTAL BILIRUBIN 0.7 mg/dL (0.2-1.0); TOTAL PROTEIN 7.4 g/dL (6.4-8.2)
[2021-08-03] MEDS ORDERED: CONTRAST GIVEN. MC PRN (17:15)
[2021-08-03] MEDS ORDERED: IOHEXOL 350 MG/ML 100 ML VIAL. IV ONE (17:15)
--- NOTE | 2021-08-03 18:13 | RAD ---
CTA CHEST History: Chest pain Comparison: None. Technique: CTA of the pulmonary arteries with intravenous contrast. 3-D postprocessing was performed. Findings: Pulmonary arteries: No pulmonary embolism. Subtle posterior right lower lobe distal pulmonary arteria l hypodensity favored to represent mixing artifact. Aorta and great vessels: No aneurysm or dissection of the aortic arch or thoracic aorta. Thyroid: No significant abnormalities. Mediastinum and ben: No mediastinal masses or adenopathy is seen. Esophagus: The visualized esophagus is normal. Heart: The heart is normal in size. There is no pericardial effusion. Airways, Lungs, Pleura: Airways are patent. No airspace consolidation, pleural effusion or pneumothor ax. Upper abdomen: Limited evaluation of the upper abdomen is unremarkable. Osseous structures and soft tissues: Variant anatomy partially conjoined first and second ribs. Flowi ng osteophytes throughout the thoracic spine. Impression: 1. No pulmonary embolism, aortic aneurysm or aortic dissection. ------ Exposure: One or more of the following individualized dose reduction techniques were utilized for thi s examination: 1. Automated exposure control 2. Adjustment of the mA and/or kV according to patient size 3. Use of iterative reconstruction technique. Electronically signed by: Terence Olguin MD (08/03/2021 6:10 PM) [facility]
--- NOTE | 2021-08-03 18:33 | PDOC1 ---
History and Physical Date of Service: DOS: DATE: 08/03/21 TIME: 18:28 Chief Complaint: Chief Complain: Chest pain. 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 He describes the chest pain that is worse on moving his upper extremities and also his neck. He also hears popping in his neck and shoulder area. He does not believe that it is his heart however because of his size he feels that he should get evaluated. Denies any nausea vomiting, fever, shortness of breath, abdominal pain, diarrhea or hematuria or palpitations. Of note, patient does not take any new immunomodulatory medications or steroids for his ankylosing spondylitis. He does have fusion of his spine seen on x-ray. Past Medical/Surgical History: PMH/PSH: History of C2 fracture and history of ankylosing spondylitis Allergies: Allergies: Coded Allergies: No Known Drug Allergies (Unverified , 10/05/18) Family History: Family History: Reviewed with no relevant findings in the chart Social History: Social History: Denies alcohol, tobacco or drug abuse Current Medications: Current Medications Current Medications Nitroglycerin (Nitrostat) 0.4 mg PRN Q5MIN PRN SL CP RATING > 1/10 Last administered on 08/03/21at 17:13; Start 08/03/21 at 16:00; Stop 08/04/21 at 15:59 Morphine Sulfate (Morphine Sulfate) 4 mg PRN Q15MIN PRN IV/SQ PAIN GREATER THAN 3/10; Start 08/03/21 at 16:00; Stop 08/04/21 at 15:59 Iohexol (Omnipaque 350 Mg/ml) 100 ml 1X ONCE IV Last administered on 08/03/21at 17:44; Start 08/03/21 at 17:15; Stop 08/03/21 at 17:16; Status DC Info (CONTRAST GIVEN -- Rx MONITORING) 1 each PRN DAILY PRN MC SEE COMMENTS; Start 08/03/21 at 17:15; Stop 08/05/21 at 17:14 Active Scripts Active Ultram (Tramadol Hcl) 50 Mg Tablet 50 Mg PO Q6HRS PRN Cyclobenzaprine Hcl 10 Mg Tablet 10 Mg PO PRN Q6HRS PRN Reported Celebrex (Celecoxib) 200 Mg Capsule 200 Mg PO BID 30 Days Xarelto (Rivaroxaban) 20 Mg Tablet 20 Mg PO DAILY Vitamin D3 (Cholecalciferol (Vitamin D3)) 1,000 Unit Tablet 2,000 Unit PO DAILY ROS: Review of Systems Review of System REVIEW OF SYSTEMS: GENERAL: Denies weakness SKIN: No bruising, hair changes or rashes. EYES: No blurred, double or loss of vision. NOSE AND THROAT: No history of nosebleeds, hoarseness or sore throat. HEART: Positive for chest pain LUNGS: Denies cough, hemoptysis, wheezing or shortness of breath. GASTROINTESTINAL: Denies changes in appetite, nausea, vomiting, diarrhea or constipation. GENITOURINARY: No history of frequency, urgency, hesitancy or nocturia. NEUROLOGIC: Denies history of numbness, tingling, or tremor. PSYCHIATRIC: No history of panic, anxiety or depression. ENDOCRINE: No history of heat or cold intolerance, polyuria or polydipsia. EXTREMITIES: Denies joint pain, pain on walking or stiffness. Physical Exam: Vital Signs: Vital Signs Date Time Temp Pulse Resp B/P (MAP) Pulse Ox O2 Delivery O2 Flow Rate FiO2 08/03/21 17:13 86 110/64 08/03/21 15:35 99.4 16 99 Room Air 99.4 Physcial Exam: General: Well developed, well nourished, no acute distress, well appearing HEENT: Pupils equally round and reactive to light, EOMI, no discharge, normal conjunctiva Neck: Supple, no nuchal rigidity, no JVD, trachea midline, no tenderness Cardiac: RRR, no murmurs, no gallops, no rubs Chest/Lungs: CTAB, no wheeze, no rhonchi, no crackles. Minimal tender to palpation in the right sternal area. Abdomen: Obese, soft, non-distended, no guarding, no peritoneal signs, non- tender Back: No tenderness Extremities: no edema, pulses intact, non-tender,capillary refill <3 sec bilateral upper and lower extremities, Neuro: Alert and oriented x 4, no focal deficits, normal speech Labs: Labs: Laboratory Tests Test 08/03/21 16:11 White Blood Count 9.6 x10^3/uL (4.0-11.0) Red Blood Count 4.30 x10^6/uL (4.30-5.70) Hemoglobin 13.7 g/dL (13.0-17.5) Hematocrit 41.2 % (39.0-53.0) Mean Corpuscular Volume 96 fL (79-100) Mean Corpuscular Hemoglobin 32 pg (25-35) Mean Corpuscular Hemoglobin Concent 33 g/dL (31-37) Red Cell Distribution Width 14.7 % (11.5-14.5) Platelet Count 291 x10^3/uL (140-400) Neutrophils (%) (Auto) 71 % (31-73) Lymphocytes (%) (Auto) 18 % (24-48) Monocytes (%) (Auto) 9 % (0-9) Eosinophils (%) (Auto) 2 % (0-3) Basophils (%) (Auto) 1 % (0-3) Neutrophils # (Auto) 6.7 x10^3/uL (1.8-7.7) Lymphocytes # (Auto) 1.7 x10^3/uL (1.0-4.8) Monocytes # (Auto) 0.8 x10^3/uL (0.0-1.1) Eosinophils # (Auto) 0.2 x10^3/uL (0.0-0.7) Basophils # (Auto) 0.1 x10^3/uL (0.0-0.2) Sodium Level 140 mmol/L (136-145) Potassium Level 3.9 mmol/L (3.5-5.1) Chloride Level 107 mmol/L (98-107) Carbon Dioxide Level 26 mmol/L (21-32) Anion Gap 7 (6-14) Blood Urea Nitrogen 10 mg/dL (8-26) Creatinine 1.1 mg/dL (0.7-1.3) Estimated GFR (Cockcroft-Gault) 69.5 BUN/Creatinine Ratio 9 (6-20) Glucose Level 142 mg/dL (70-99) Calcium Level 8.0 mg/dL (8.5-10.1) Magnesium Level 1.9 mg/dL (1.8-2.4) Total Bilirubin 0.7 mg/dL (0.2-1.0) Aspartate Amino Transf (AST/SGOT) 16 U/L (15-37) Alanine Aminotransferase (ALT/SGPT) 25 U/L (16-63) Alkaline Phosphatase 103 U/L (46-116) Troponin I High Sensitivity 7 ng/L (4-75) [id number]-Type Natriuretic Peptide 58 pg/mL (0-124) Total Protein 7.4 g/dL (6.4-8.2) Albumin 2.9 g/dL (3.4-5.0) Albumin/Globulin Ratio 0.6 (1.0-1.7) Thyroid Stimulating Hormone (TSH) 1.553 uIU/mL (0.358-3.74) Laboratory Tests Test 08/03/21 16:11 White Blood Count 9.6 x10^3/uL (4.0-11.0) Red Blood Count 4.30 x10^6/uL (4.30-5.70) Hemoglobin 13.7 g/dL (13.0-17.5) Hematocrit 41.2 % (39.0-53.0) Mean Corpuscular Volume 96 fL (79-100) Mean Corpuscular Hemoglobin 32 pg (25-35) Mean Corpuscular Hemoglobin Concent 33 g/dL (31-37) Red Cell Distribution Width 14.7 % (11.5-14.5) Platelet Count 291 x10^3/uL (140-400) Neutrophils (%) (Auto) 71 % (31-73) Lymphocytes (%) (Auto) 18 % (24-48) Monocytes (%) (Auto) 9 % (0-9) Eosinophils (%) (Auto) 2 % (0-3) Basophils (%) (Auto) 1 % (0-3) Neutrophils # (Auto) 6.7 x10^3/uL (1.8-7.7) Lymphocytes # (Auto) 1.7 x10^3/uL (1.0-4.8) Monocytes # (Auto) 0.8 x10^3/uL (0.0-1.1) Eosinophils # (Auto) 0.2 x10^3/uL (0.0-0.7) Basophils # (Auto) 0.1 x10^3/uL (0.0-0.2) Sodium Level 140 mmol/L (136-145) Potassium Level 3.9 mmol/L (3.5-5.1) Chloride Level 107 mmol/L (98-107) Carbon Dioxide Level 26 mmol/L (21-32) Anion Gap 7 (6-14) Blood Urea Nitrogen 10 mg/dL (8-26) Creatinine 1.1 mg/dL (0.7-1.3) Estimated GFR (Cockcroft-Gault) 69.5 BUN/Creatinine Ratio 9 (6-20) Glucose Level 142 mg/dL (70-99) Calcium Level 8.0 mg/dL (8.5-10.1) Magnesium Level 1.9 mg/dL (1.8-2.4) Total Bilirubin 0.7 mg/dL (0.2-1.0) Aspartate Amino Transf (AST/SGOT) 16 U/L (15-37) Alanine Aminotransferase (ALT/SGPT) 25 U/L (16-63) Alkaline Phosphatase 103 U/L (46-116) Troponin I High Sensitivity 7 ng/L (4-75) OA-Ndf-G-Type Natriuretic Peptide 58 pg/mL (0-124) Total Protein 7.4 g/dL (6.4-8.2) Albumin 2.9 g/dL (3.4-5.0) Albumin/Globulin Ratio 0.6 (1.0-1.7) Thyroid Stimulating Hormone (TSH) 1.553 uIU/mL (0.358-3.74) Images: Images PROCEDURE: CT ANGIOGRAPHY CHEST CTA CHEST History: Chest pain Comparison: None. Technique: CTA of the pulmonary arteries with intravenous contrast. 3-D postprocessing was performed. Findings: Pulmonary arteries: No pulmonary embolism. Subtle posterior right lower lobe distal pulmonary arterial hypodensity favored to represent mixing artifact. Aorta and great vessels: No aneurysm or dissection of the aortic arch or thoracic aorta. Thyroid: No significant abnormalities. Mediastinum and ben: No mediastinal masses or adenopathy is seen. Esophagus: The visualized esophagus is normal. Heart: The heart is normal in size. There is no pericardial effusion. Airways, Lungs, Pleura: Airways are patent. No airspace consolidation, pleural effusion or pneumothorax. Upper abdomen: Limited evaluation of the upper abdomen is unremarkable. Osseous structures and soft tissues: Variant anatomy partially conjoined first and second ribs. Flowing osteophytes throughout the thoracic spine. Impression: 1. No pulmonary embolism, aortic aneurysm or aortic dissection. Assessment/Plan Assessment/Plan Problem List: Chest pain, rule out ACS Super super morbid Obesity History of ankylosing spondylitis, axial Admit to hospitalist for observation Will obtain right shoulder x-ray to rule out peripheral ankylosing spondylitis Pending ESR EKG showing no acute ST elevations Troponin negative x2 Continue aspirin, consider Plavix if intermediate risk will defer this to cardiology Cardiology consulted for predischarge stress testing or left heart cath Continue nitroglycerin as needed for pain Continue beta-isael if blood pressures allow Continue high intensity statins IV morphine as needed Consider Lovenox Maintain O2 sats between 88 to 95% Trend troponins Repeat EKG in the a.m. Continue telemetry monitoring Monitor for electrolyte abnormalities Avoid NSAIDs Justifications for Admission Other Justification ALEXEI DEL RIO MD Aug 03, 2021 18:33
[2021-08-03] MEDS ORDERED: diphenhydrAMINE HCL 25 MG CAPSULE PO PRN ×2 (18:45)
[2021-08-03] MEDS ORDERED: ONDANSETRON PF 4 MG/2 ML VIAL. IVP PRN ×2 (18:45→21:00)
[2021-08-03] MEDS ORDERED: ACETAMINOPHEN 325 MG TABLET. PO PRN (18:45)
[2021-08-03] MEDS ORDERED: MORPHINE SULFATE 2 MG/ML INJ. IVP PRN (18:45)
[2021-08-03] MEDS ORDERED: MORPHINE SULFATE 2 MG/ML INJ. IV PRN (18:45)
[2021-08-03] MEDS ORDERED: ZOLPIDEM 5 MG TABLET. PO PRN (18:45)
[2021-08-03] MEDS ORDERED: LORazepam 0.5 MG TABLET PO PRN (18:45)
[2021-08-03] MEDS ORDERED: DEXTROSE 50% 25 GM / 50ML DISP.SYRIN. IV PRN (18:45)
[2021-08-03] MEDS ORDERED: SENNOSIDES 8.6 MG TABLET PO PRN (18:45)
[2021-08-03] MEDS ORDERED: diphenhydrAMINE 50 MG/ML VIAL IVP PRN (18:45)
[2021-08-03] MEDS ORDERED: DOCUSATE SODIUM 100 MG CAPSULE. PO PRN (18:45)
[2021-08-03] MEDS ORDERED: PROCHLORPERAZINE 10 MG/2 ML VIAL. IV PRN (18:45)
[2021-08-03] MEDS: IV NORMAL SALINE 1000ML BAG 1,000 ML IV SCH (18:45)
[2021-08-03 20:38] LABS: BARBITURATES NEG (NEG); BENZODIAZEPINES NEG (NEG); CANNABINOIDS NEG (NEG); COCAINE NEG (NEG); METHADONE NEG (NEG); OPIATES POS (NEG); PHENCYCLIDINE NEG (NEG)
[2021-08-03 20:40] LABS: AMPHETAMINE/METHAMPHETAMINE NEG (NEG)
[2021-08-03 20:45] VITALS: BP 152/110
[2021-08-03] MEDS ORDERED: MORPHINE SULFATE 4 MG/ML INJ. IVP PRN (21:00)
--- NOTE | 2021-08-03 21:00 | NUR ---
Admit from ER to [facility] room 558 via WC. A/O x 4 on arrival. Ambulates with steady gait. Pleasant. Cooperative. C/O right shoulder/Chest pain rated 4/10. Described as dull ache and at times shoulder/chest feels like it is being tore apart. 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 Has a wound to LLEs and is currently working with wound care. Was seen by wound care clinic today and dressing was changed at that time. Patient reports wound is healing and much smaller than it was. Dressing to LLE CD&I. Reviewed home medications and preferred pharmacy. Orientated to room and call light. Verbalized understanding. Bariatric Bed ordered and placed in room . Patient sitting at bedside. Call light at hand.
[2021-08-03] MEDS: ENOXAPARIN 40 MG/0.4 ML SYRINGE. SQ SCH (21:35)
[2021-08-03] MEDS: DICLOFENAC SODIUM 1% TOPICAL GEL 100GM TUBE. TP SCH (21:35)
--- NOTE | 2021-08-03 22:41 | PHYS DOC ---
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 Patient states symptoms occur with certain movements. He states he has tried hydrocodone, ibuprofen, minimal relief. Describes the pain as achy. Denies any nausea, vomiting, fever. 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 Review of Systems: Review of Systems: Constitutional: Denies fever or chills. [] Eyes: Denies change in visual acuity. [] HENT: Denies nasal congestion or sore throat. [] Respiratory: Denies cough or shortness of breath. [] Cardiovascular: Reports right-sided chest pain GI: Denies abdominal pain, nausea, vomiting, bloody stools or diarrhea. [] : Denies dysuria. [] Musculoskeletal: Reports right shoulder pain and right neck pain. Denies back pain Integument: Denies rash. [] Neurologic: Denies headache, focal weakness or sensory changes. [] Psychiatric: Denies depression or anxiety. [] Heart Score: C/O Chest Pain: Yes HEART Score for Chest Pain: HEART Score for Chest Pain Response (Comments) Value History Slighlty/Non-Suspicious 0 Age >45 - < 65 1 Risk Factors 1 or 2 Risk Factors 1 Troponin < Normal Limit 0 Total 2 Risk Factors: Risk Factors: DM, Current or recent (<one month) smoker, HTN, HLP, family history of CAD, obesity. Risk Scores: Score 0 - 3: 2.5% MACE over next 6 weeks - Discharge Home Score 4 - 6: 20.3% MACE over next 6 weeks - Admit for Clinical Observation Score 7 - 10: 72.7% MACE over next 6 weeks - Early Invasive Strategies Current Medications: Current Medications Medications (Trade) Dose Ordered Sig/Cheng Start Time Stop Time Status Last Admin Dose Admin Info (CONTRAST GIVEN -- Rx MONITORING) 1 each PRN DAILY PRN 08/03/21 17:15 08/05/21 17:14 Iohexol (Omnipaque 350 Mg/ml) 100 ml 1X ONCE 08/03/21 17:15 08/03/21 17:16 DC 08/03/21 17:44 100 ML Morphine Sulfate (Morphine Sulfate) 4 mg PRN Q15MIN PRN 08/03/21 16:00 08/03/21 20:55 DC Nitroglycerin (Nitrostat) 0.4 mg PRN Q5MIN PRN 08/03/21 16:00 08/03/21 20:54 DC 08/03/21 17:13 0.4 MG Allergies: Allergies: Allergies Coded Allergies Type Severity Reaction Last Updated Verified No Known Drug Allergies 10/05/18 No Physical Exam: PE: Constitutional: Morbidly obese patient, no acute distress, non-toxic appearance. [] HENT: Normocephalic, atraumatic, bilateral external ears normal, oropharynx moist, no oral exudates, nose normal. [] Eyes: PERRLA, EOMI, conjunctiva normal, no discharge. [] Neck: Normal range of motion, no tenderness, supple, no stridor. [] Cardiovascular:Heart rate regular rhythm, no murmur, reproducible right-sided chest pain on palpation of the right upper chest Lungs & Thorax: Bilateral breath sounds clear to auscultation [] Abdomen: Bowel sounds normal, soft, no tenderness, no masses, no pulsatile masses. [] Skin: Warm, dry, no erythema, no rash. [] Back: No tenderness, no CVA tenderness. [] Extremities: No tenderness, no cyanosis, no clubbing, ROM intact, no edema. [] Neurologic: Alert and oriented X 3, normal motor function, normal sensory function, no focal deficits noted. [] Psychologic: Affect normal, judgement normal, mood normal. [] Current Patient Data: Labs: Laboratory Tests Test 08/03/21 16:11 08/03/21 18:38 08/03/21 20:14 08/03/21 20:37 White Blood Count 9.6 x10^3/uL (4.0-11.0) Red Blood Count 4.30 x10^6/uL (4.30-5.70) Hemoglobin 13.7 g/dL (13.0-17.5) Hematocrit 41.2 % (39.0-53.0) Mean Corpuscular Volume 96 fL (79-100) Mean Corpuscular Hemoglobin 32 pg (25-35) Mean Corpuscular Hemoglobin Concent 33 g/dL (31-37) Red Cell Distribution Width 14.7 % (11.5-14.5) H Platelet Count 291 x10^3/uL (140-400) Neutrophils (%) (Auto) 71 % (31-73) Lymphocytes (%) (Auto) 18 % (24-48) L Monocytes (%) (Auto) 9 % (0-9) Eosinophils (%) (Auto) 2 % (0-3) Basophils (%) (Auto) 1 % (0-3) Neutrophils # (Auto) 6.7 x10^3/uL (1.8-7.7) Lymphocytes # (Auto) 1.7 x10^3/uL (1.0-4.8) Monocytes # (Auto) 0.8 x10^3/uL (0.0-1.1) Eosinophils # (Auto) 0.2 x10^3/uL (0.0-0.7) Basophils # (Auto) 0.1 x10^3/uL (0.0-0.2) Sodium Level 140 mmol/L (136-145) Potassium Level 3.9 mmol/L (3.5-5.1) Chloride Level 107 mmol/L (98-107) Carbon Dioxide Level 26 mmol/L (21-32) Anion Gap 7 (6-14) Blood Urea Nitrogen 10 mg/dL (8-26) Creatinine 1.1 mg/dL (0.7-1.3) Estimated GFR (Cockcroft-Gault) 69.5 BUN/Creatinine Ratio 9 (6-20) Glucose Level 142 mg/dL (70-99) H Calcium Level 8.0 mg/dL (8.5-10.1) L Magnesium Level 1.9 mg/dL (1.8-2.4) Total Bilirubin 0.7 mg/dL (0.2-1.0) Aspartate Amino Transferase (AST) 16 U/L (15-37) Alanine Aminotransferase (ALT) 25 U/L (16-63) Alkaline Phosphatase 103 U/L (46-116) Troponin I High Sensitivity 7 ng/L (4-75) 8 ng/L (4-75) HW-Uos-A-Type Natriuretic Peptide 58 pg/mL (0-124) Total Protein 7.4 g/dL (6.4-8.2) Albumin 2.9 g/dL (3.4-5.0) L Albumin/Globulin Ratio 0.6 (1.0-1.7) L Thyroid Stimulating Hormone (TSH) 1.553 uIU/mL (0.358-3.74) Urine Opiates Screen Pos (NEG) Urine Methadone Screen Neg (NEG) Urine Barbiturates Neg (NEG) Urine Phencyclidine Screen Neg (NEG) Urine Amphetamine/Methamphetamine Neg (NEG) Urine Benzodiazepines Screen Neg (NEG) Urine Cocaine Screen Neg (NEG) Urine Cannabinoids Screen Neg (NEG) Urine Ethyl Alcohol Neg (NEG) Erythrocyte Sedimentation Rate 45 (0-15) H Test 08/03/21 21:55 Troponin I High Sensitivity 9 ng/L (4-75) Laboratory Tests 08/03/21 16:11 Laboratory Tests 08/03/21 16:11 Vital Signs: Vital Signs Date Time Temp Pulse Resp B/P (MAP) Pulse Ox O2 Delivery O2 Flow Rate FiO2 08/03/21 20:45 98.8 91 24 152/110 (124) 96 Room Air 98.8 EKG: EK interpreted by Dr. Hill sinus tachycardia heart rate 101 no STEMI Radiology/Procedures: Radiology/Procedures: []PROCEDURE: CT ANGIOGRAPHY CHEST CTA CHEST History: Chest pain Comparison: None. Technique: CTA of the pulmonary arteries with intravenous contrast. 3-D postprocessing was performed. Findings: Pulmonary arteries: No pulmonary embolism. Subtle posterior right lower lobe distal pulmonary arterial hypodensity favored to represent mixing artifact. Aorta and great vessels: No aneurysm or dissection of the aortic arch or thoracic aorta. Thyroid: No significant abnormalities. Mediastinum and ben: No mediastinal masses or adenopathy is seen. Esophagus: The visualized esophagus is normal. Heart: The heart is normal in size. There is no pericardial effusion. Airways, Lungs, Pleura: Airways are patent. No airspace consolidation, pleural effusion or pneumothorax. Upper abdomen: Limited evaluation of the upper abdomen is unremarkable. Osseous structures and soft tissues: Variant anatomy partially conjoined first and second ribs. Flowing osteophytes throughout the thoracic spine. Impression: 1. No pulmonary embolism, aortic aneurysm or aortic dissection. ------ Exposure: One or more of the following individualized dose reduction techniques were utilized for this examination: 1. Automated exposure control 2. Adjustment of the mA and/or kV according to patient size 3. Use of iterative reconstruction technique. Electronically signed by: Terence Villalobos MD (08/03/2021 6:10 PM) [facility] DICTATED and SIGNED BY: TERENCE VILLALOBOS MD DATE: 08/03/21 [id number] 0 Course & Med Decision Making: Course & Med Decision Making Pertinent Labs and Imaging studies reviewed. (See chart for details) This is a 56-year-old male patient presenting to the ED today complaining of right-sided chest pain, right shoulder pain and right neck pain, symptoms for 2 weeks. Vitals on arrival to the ED temperature 99.4, heart rate 98, blood pressure 148/96, O2 sats 99% on room air, respiration 16 EKG is negative, CBC, CMP, troponin-negative for any acute findings CTA chest is negative Spoke with Dr. Salvador who accepted patient for admission for chest pain rule out Routine consult placed for cardiology Te Disclaimer: Te Disclaimer: This electronic medical record was generated, in whole or in part, using a voice recognition dictation system. Departure Departure Impression: Primary Impression: Chest pain Qualified Codes: R07.9 - Chest pain, unspecified Disposition: 09 ADMITTED INPATIENT Condition: STABLE Referrals: NO PCP (PCP) CHRIS DALE APRN Aug 03, 2021 22:41
[2021-08-03 22:55] VITALS: BP 120/76
[2021-08-04 02:45] VITALS: BP 139/81
[2021-08-04] MEDS: IV NORMAL SALINE 1000ML BAG 1,000 ML IV SCH (04:45)
--- NOTE | 2021-08-04 05:01 | EKG ---
[facility] [address] [place] [address] Test Date: 2021-08-03 Test Time: 15:38:54 Pat Name: JONATHAN BREWER Department: Room: [facility] Gender: M Butter Wrapper: : 1965 Requested By: CHRIS DALE Order Number: [id number] Reading MD: Sam Alas Measurements Intervals [place] Rate: 101 P: -13 MA: 124 QRS: 12 QRSD: 80 T: 47 QT: 338 QTc: 439 Interpretive Statements SINUS TACHYCARDIA Electronically Signed On 08-04-2021 20:00:52 DISBURSING AGENT by Sam Alas
[2021-08-04 05:11] LABS: BASO # 0.1 x10^3/uL (0.0-0.2); BASO % 1 % (0-3); EOS # 0.3 x10^3/uL (0.0-0.7); EOS % 4 % (0-3); HEMATOCRIT 39.4 % (39.0-53.0); HEMOGLOBIN 13.2 g/dL (13.0-17.5); LYMPH # 2.1 x10^3/uL (1.0-4.8); LYMPH % 25 % (24-48); MEAN CORPUSCULAR HEMOGLOBIN 32 pg (25-35); MEAN CORPUSCULAR HGB CONC 33 g/dL (31-37); MEAN CORPUSCULAR VOLUME 97 fL (79-100); MONO # 0.8 x10^3/uL (0.0-1.1); MONO % 9 % (0-9); NEUT # 5.1 x10^3/uL (1.8-7.7); NEUT % 62 % (31-73); PLATELET COUNT 273 x10^3/uL (140-400); RED BLOOD COUNT 4.08 x10^6/uL (4.30-5.70); RED CELL DISTRIBUTION WIDTH 14.3 % (11.5-14.5); WHITE BLOOD COUNT 8.3 x10^3/uL (4.0-11.0)
[2021-08-04 05:30] LABS: CALCIUM 7.8 mg/dL (8.5-10.1); GFR 77.6; PHOSPHORUS 3.8 mg/dL (2.6-4.7); POTASSIUM 4.1 mmol/L (3.5-5.1)
[2021-08-04 07:00] VITALS: BP 147/99
[2021-08-04] MEDS ORDERED: PANTOPRAZOLE 40 MG TABLET.DR. PO SCH (07:30)
--- NOTE | 2021-08-04 07:51 | RAD ---
EXAM: Right shoulder, 3 views. HISTORY: Pain. COMPARISON: None. FINDINGS: 3 views of the right shoulder obtained. There is mild to moderate glenohumeral and acromioc lavicular joint spurring. There is decreased subacromial space likely due to chronic rotator cuff pat hology. There is a suspected healed right first rib fracture. IMPRESSION: 1. Mild to moderate acromioclavicular and glenohumeral joint osteoarthritis. 2. Suspected chronic rotator cuff tear. Electronically signed by: Bernie Rucker MD (08/04/2021 7:49 AM) [id number]
[2021-08-04] MEDS ORDERED: ASPIRIN ENTERIC COATED 81 MG TABLET.DR. PO SCH (08:00)
[2021-08-04] MEDS ORDERED: PERFLUTREN PROTEIN-A MICROSPHR 0.22 MG/ML 3 ML VIAL. IV ONE ×3 (08:09→08:15)
[2021-08-04] MEDS: DICLOFENAC SODIUM 1% TOPICAL GEL 100GM TUBE. TP SCH (08:18)
[2021-08-04] MEDS: ENOXAPARIN 40 MG/0.4 ML SYRINGE. SQ SCH (08:19)
[2021-08-04 08:22] LABS: CHOLESTEROL/HDL RATIO 3.5
--- NOTE | 2021-08-04 08:26 | PDOC2 ---
KELLEN FERNANDO NETWORK ACCOUNT MANAGER 08/04/21 0826: CARDIAC CONSULT DATE OF CONSULT Date of Consult DATE: 08/04/21 TIME: 08:15 REASON FOR CONSULT Reason for Consult: Chest pain REFERRING PHYSICIAN Referring Physician: Ingrid SOURCE Source: Chart review, Patient HISTORY OF PRESENT ILLNESS HISTORY OF PRESENT ILLNESS This is a pleasant 56 yo male admitted for complains of chest pain. This is sharp and mostly to his right shoulder and reproducible with ROM. This started bothering him more in the last few days. No associated nausea vomiting or SOA. No recent falls or injury. No fever or chills. No palpitations. Further imaging revealed shoulder arthritis. No prior hx of CAD but has had DVT to his RLE in the past and has been on xarelto since 2017 and elected to continue on it since he has been tolerating it without any issues with bleeding. He also has venous insufficiency to BLE and has a wound to his left calf covered with dressing wrap currently and sees supply specialist for it and deemed due to venous insuffic iency. Aside from xarelto he does not take any other medications. No HTN, nor DM2 hx. PAST MEDICAL HISTORY Cardiovascular: HTN, Other (LE venous insufficiency) Pulmonary: Other (MCKENZIE) Heme/Onc: Other (2017 LLE DVT on xarelto) Musculoskeletal: Other (C2 cervical fracture 2019; ankylosing spondylitis) PAST SURGICAL HISTORY Past Surgical History: Cholecystectomy, Tonsillectomy, Other (plastic surgery on posterior neck) FAMILY HISTORY Family History: Other (afib mother) SOCIAL HISTORY Smoke: No ALCOHOL: none Drugs: None Lives: with Family CURRENT MEDICATIONS CURRENT MEDICATIONS Current Medications Medications (Trade) Dose Ordered Sig/Cheng Route PRN Reason Start Time Stop Time Status Last Admin Dose Admin Nitroglycerin (Nitrostat) 0.4 mg PRN Q5MIN PRN SL CP RATING > 1/10 08/03/21 16:00 08/03/21 20:54 DC 08/03/21 17:13 Iohexol (Omnipaque 350 Mg/ml) 100 ml 1X ONCE IV 08/03/21 17:15 08/03/21 17:16 DC 08/03/21 17:44 Enoxaparin Sodium (Lovenox 40mg Syringe) 40 mg Q24H SQ 08/03/21 21:00 08/03/21 21:35 Diclofenac Sodium (Voltaren) 1 jenelle BID TP 08/03/21 21:00 08/03/21 21:35 ALLERGIES ALLERGIES: Coded Allergies: No Known Drug Allergies (Unverified , 10/05/18) ROS Review of System 14 point ROS evaluated with pertinent positives noted per HPI PHYSICAL EXAM General: Alert, Oriented X3, Cooperative, No acute distress HEENT: Atraumatic, Mucous membr. moist/pink Lungs: Other (diminished) Heart: Regular rate (SR), Other (distant heart sounds with large body habitus) Abdomen: Soft, Other (morbid obesity) Extremities: No cyanosis, Other (2+ bilateral LE pitting edema) Skin: Other (wound to left calf covered with dressing. venous dermatitis) Psych/Mental Status: Mental status NL, Mood NL MUSCULOSKELETAL: Other (limited to right shoulder ROM) VITALS/I&O VITALS/I&O: Vital Signs Date Time Temp Pulse Resp B/P (MAP) Pulse Ox O2 Delivery O2 Flow Rate FiO2 08/04/21 02:45 98.0 85 20 139/81 (100) 98 BiPAP/CPAP 98.0 I & O 08/03/21 08/03/21 08/04/21 15:00 23:00 07:00 Intake Total 360 ml 240 ml Balance 360 ml 240 ml LABS Lab: Laboratory Tests Test 08/03/21 16:11 08/03/21 18:38 08/03/21 20:14 08/03/21 20:37 White Blood Count 9.6 x10^3/uL (4.0-11.0) Red Blood Count 4.30 x10^6/uL (4.30-5.70) Hemoglobin 13.7 g/dL (13.0-17.5) Hematocrit 41.2 % (39.0-53.0) Mean Corpuscular Volume 96 fL (79-100) Mean Corpuscular Hemoglobin 32 pg (25-35) Mean Corpuscular Hemoglobin Concent 33 g/dL (31-37) Red Cell Distribution Width 14.7 % (11.5-14.5) H Platelet Count 291 x10^3/uL (140-400) Neutrophils (%) (Auto) 71 % (31-73) Lymphocytes (%) (Auto) 18 % (24-48) L Monocytes (%) (Auto) 9 % (0-9) Eosinophils (%) (Auto) 2 % (0-3) Basophils (%) (Auto) 1 % (0-3) Neutrophils # (Auto) 6.7 x10^3/uL (1.8-7.7) Lymphocytes # (Auto) 1.7 x10^3/uL (1.0-4.8) Monocytes # (Auto) 0.8 x10^3/uL (0.0-1.1) Eosinophils # (Auto) 0.2 x10^3/uL (0.0-0.7) Basophils # (Auto) 0.1 x10^3/uL (0.0-0.2) Sodium Level 140 mmol/L (136-145) Potassium Level 3.9 mmol/L (3.5-5.1) Chloride Level 107 mmol/L (98-107) Carbon Dioxide Level 26 mmol/L (21-32) Anion Gap 7 (6-14) Blood Urea Nitrogen 10 mg/dL (8-26) Creatinine 1.1 mg/dL (0.7-1.3) Estimated GFR (Cockcroft-Gault) 69.5 BUN/Creatinine Ratio 9 (6-20) Glucose Level 142 mg/dL (70-99) H Calcium Level 8.0 mg/dL (8.5-10.1) L Magnesium Level 1.9 mg/dL (1.8-2.4) Total Bilirubin 0.7 mg/dL (0.2-1.0) Aspartate Amino Transferase (AST) 16 U/L (15-37) Alanine Aminotransferase (ALT) 25 U/L (16-63) Alkaline Phosphatase 103 U/L (46-116) Troponin I High Sensitivity 7 ng/L (4-75) 8 ng/L (4-75) QZ-Iyh-R-Type Natriuretic Peptide 58 pg/mL (0-124) Total Protein 7.4 g/dL (6.4-8.2) Albumin 2.9 g/dL (3.4-5.0) L Albumin/Globulin Ratio 0.6 (1.0-1.7) L Thyroid Stimulating Hormone (TSH) 1.553 uIU/mL (0.358-3.74) Urine Opiates Screen Pos (NEG) Urine Methadone Screen Neg (NEG) Urine Barbiturates Neg (NEG) Urine Phencyclidine Screen Neg (NEG) Urine Amphetamine/Methamphetamine Neg (NEG) Urine Benzodiazepines Screen Neg (NEG) Urine Cocaine Screen Neg (NEG) Urine Cannabinoids Screen Neg (NEG) Urine Ethyl Alcohol Neg (NEG) Erythrocyte Sedimentation Rate 45 (0-15) H Test 08/03/21 21:30 08/03/21 21:55 08/04/21 03:15 SARS-CoV-2 (PCR) Not detected (NOT DETECTD) Troponin I High Sensitivity 9 ng/L (4-75) White Blood Count 8.3 x10^3/uL (4.0-11.0) Red Blood Count 4.08 x10^6/uL (4.30-5.70) L Hemoglobin 13.2 g/dL (13.0-17.5) Hematocrit 39.4 % (39.0-53.0) Mean Corpuscular Volume 97 fL (79-100) Mean Corpuscular Hemoglobin 32 pg (25-35) Mean Corpuscular Hemoglobin Concent 33 g/dL (31-37) Red Cell Distribution Width 14.3 % (11.5-14.5) Platelet Count 273 x10^3/uL (140-400) Neutrophils (%) (Auto) 62 % (31-73) Lymphocytes (%) (Auto) 25 % (24-48) Monocytes (%) (Auto) 9 % (0-9) Eosinophils (%) (Auto) 4 % (0-3) H Basophils (%) (Auto) 1 % (0-3) Neutrophils # (Auto) 5.1 x10^3/uL (1.8-7.7) Lymphocytes # (Auto) 2.1 x10^3/uL (1.0-4.8) Monocytes # (Auto) 0.8 x10^3/uL (0.0-1.1) Eosinophils # (Auto) 0.3 x10^3/uL (0.0-0.7) Basophils # (Auto) 0.1 x10^3/uL (0.0-0.2) Sodium Level 141 mmol/L (136-145) Potassium Level 4.1 mmol/L (3.5-5.1) Chloride Level 105 mmol/L (98-107) Carbon Dioxide Level 28 mmol/L (21-32) Anion Gap 8 (6-14) Blood Urea Nitrogen 10 mg/dL (8-26) Creatinine 1.0 mg/dL (0.7-1.3) Estimated GFR (Cockcroft-Gault) 77.6 Glucose Level 111 mg/dL (70-99) H Calcium Level 7.8 mg/dL (8.5-10.1) L Phosphorus Level 3.8 mg/dL (2.6-4.7) Magnesium Level 2.0 mg/dL (1.8-2.4) Laboratory Tests 08/03/21 16:11 08/04/21 03:15 Laboratory Tests 08/03/21 16:11 08/04/21 03:15 ECHOCARDIOGRAM ECHOCARDIOGRAM <Conclusion> The left ventricular systolic function is normal and the ejection fraction is within normal range. The Ejection Fraction is 55%. There is normal LV segmental wall motion. DATE: 10/08/18 1057 ASSESSMENT/PLAN ASSESSMENT/PLAN 1. Atypical Chest pain: possibly MSK, doubt ACS. trops nml. EKG NSR 2. MCKENZIE: uses bipap at home 3. Morbid obesity 4. HTN: no home meds, controlled 5. Chronic right RTC tear per xray with shoulder OA 6. Hx of RLE DVT: on xarelto per PCP 7. Venous dermatitis/venous insufficiency with left calf wound Recommendations 1. FLP 2. Would benefit from arterial duplex but declined this for now and he is citing venous stasis ulcer to left calf without claudication symptoms. 3. No further cardiac workup EVELIN GARCIA MD 08/04/21 1711: CARDIAC CONSULT ASSESSMENT/PLAN ASSESSMENT/PLAN Patient seen and examined He is feeling better today. I agree with our nurse practitioners assessment and plan. Atypical Chest pain: Probably MSK, doubt ACS. trops nml. EKG NSR MCKENZIE: uses bipap at home Morbid obesity HTN: no home meds, controlled Chronic right RTC tear per xray with shoulder OA Hx of RLE DVT: on xarelto per PCP Venous dermatitis/venous insufficiency with left calf wound. Consider arterial duplex study when the patient gives permission. KELLEN FERNANDO APRN Aug 04, 2021 08:26 EVELIN GARCIA MD Aug 04, 2021 17:11
[2021-08-04 11:00] VITALS: BP 121/70
[2021-08-04] MEDS ORDERED: PANT40TA77 PO (11:55)
--- NOTE | 2021-08-04 11:56 | DISCH ---
DISCHARGE INSTRUCTIONS Condition on Discharge Condition on Discharge: Stable Activity After Discharge Activity Instructions for Disc: Activity as tolerated Lifting Instructions after Dis: No heavy lifting Driving Instructions after Dis: Do not drive Weight Bearing Status after Di: No restrictions Diet after Discharge Diet after Discharge: Cardiac, Regular Follow-Up Follow up with: PCP within 2 weeks of discharge Follow Up With: Cardiology as scheduled or as needed Treatment/Equipment after DC Adaptive Equipment Issued: Brace/splint ALEXEI DEL RIO MD Aug 04, 2021 11:56
--- NOTE | 2021-08-04 13:14 | NUR ---
SS following for discharge planning. SS reviewed pt chart and discussed with pt RN. Pt is from home and is currently on room air. COVID19 negative. Cardiology and Wound Care consulted. SS will continue to follow for discharge planning.
[2021-08-04 14:45] VITALS: BP 125/65
--- NOTE | 2021-08-04 15:23 | NUR ---
Wound Care Patient refused wound care assessment, he is leaving today and has an appt to follow up in [facility] at [facility]
--- NOTE | 2021-08-05 12:29 | CARD ---
MR#: [id number] Date of Study: 08/04/2021 Ordering Physician: ALEXEI DEL RIO, Referring Physician: ALEXEI DEL RIO, Tech: APPROVED REPORT EXAM: Two-dimensional and M-mode echocardiogram with Doppler and color Doppler. Other Information Technically limited study due to body habitus. INDICATION Dyspnea 2D DIMENSIONS Left Atrium(2D)4.0 (1.6-4.0cm)IVSd1.2 (0.7-1.1cm) Aortic Root(2D)3.6 (2.0-3.7cm)LVDd6.1 (3.9-5.9cm) LVOT Diameter2.2 (1.8-2.4cm)PWd1.5 (0.7-1.1cm) LVDs4.8 (2.5-4.0cm)FS (%) 25.1 % SV100.4 mlLVEF(%)48.6 (>50%) Aortic Valve AoV Peak Rafi.129.8cm/sAoV VTI32.0cm AO Peak GR.6.7mmHgLVOT VTI 20.56cm AO Mean GR.5mmHg Mitral Valve MV E Dkzrkloz82.5cm/sMV E Peak Gr.5mmHg MV DECEL [id number] A Utvivtqb16.8cm/s MV E Mean Gr.2mmHgE/A Ratio0.8 TDI Lateral E' P. V7.85cm/sMedial E' P. V8.56cm/s E/Lateral E'7.5E/Medial E'6.8 Tricuspid Valve TR P. Hrpojlaj284nm/sRAP [id number] TR Peak Gr.45arDcFRAH56rzHn Pulmonary Vein S1 Vjctnmwk87.1cm/sS2 Ujjaxpdc44.38cm/s D2 Rajcvvht61.4cm/sPVa [id number] LEFT VENTRICLE The left ventricle is normal size. There is mild to moderate concentric left ventricular hypertrophy. The left ventricular systolic function is normal and the ejection fraction is within normal range. E F 55% There is normal LV segmental wall motion. Transmitral Doppler flow pattern is Grade I-abnormal relaxation pattern. RIGHT VENTRICLE The right ventricle is borderline dilated measuring 3.7 cm. The right ventricle is mildly hypertrophi ed. The right ventricular systolic function is normal. ATRIA The left atrium is mildly dilated. The right atrium is not well visualized. The interatrial septum is intact with no evidence for an atrial septal defect or patent foramen ovale as noted on 2-D or Doppl er imaging. AORTIC VALVE The aortic valve is normal in structure and function. Doppler and Color Flow revealed no significant aortic regurgitation. There is no significant aortic valvular stenosis. Calculated aortic valve area is 2.30 cm2 with maximum pressure gradient of 10 mmHg and mean pressure gradient of 5 mmHg. MITRAL VALVE The mitral valve is normal in structure and function. There is no evidence of mitral valve prolapse. There is no mitral valve stenosis. Doppler and Color-flow revealed trace mitral regurgitation. TRICUSPID VALVE The tricuspid valve is normal in structure and function. Doppler and Color Flow revealed trace tricus pid regurgitation with an estimated PAP of 32 mmHg. There is no tricuspid valve stenosis. PULMONIC VALVE The pulmonic valve is not well visualized. Doppler and Color Flow revealed no pulmonic valvular regur gitation. There is no pulmonic valvular stenosis. GREAT VESSELS The aortic root is normal in size. The ascending aorta is normal in size. The IVC is dilated and prem apses <50% with inspiration. PERICARDIAL EFFUSION There is no evidence of significant pericardial effusion. Critical Notification Critical Value: No <Conclusion> The left ventricular systolic function is normal and the ejection fraction is within normal range. EF 55% There is normal LV segmental wall motion. Signed by : Joseph Mayo, Electronically Approved : 08/05/2021 12:29:04
== END 2021-08-04 16:30 | disposition home or self-care (01) ==
LOC: ER 15:31 → 6 SOUTH 18:30 → INTOOBSV 18:30
PROVIDERS: ADMIT Internal Medicine; ATTEND Internal Medicine
DX: R07.89 Other chest pain (principal); Z20.822 Contact with and (suspected) exposure to COVID-19; I10 Essential (primary) hypertension; G47.33 Obstructive sleep apnea (adult) (pediatric); E66.01 Morbid (severe) obesity due to excess calories; I87.2 Venous insufficiency (chronic) (peripheral); L30.9 Dermatitis, unspecified; M19.012 Primary osteoarthritis, left shoulder; M25.78 Osteophyte, vertebrae; M45.9 Ankylosing spondylitis of unspecified sites in spine; Z87.81 Personal history of (healed) traumatic fracture; Z90.49 Acquired absence of other specified parts of digestive tract; Z79.899 Other long term (current) drug therapy; Z98.890 Other specified postprocedural states; Z86.711 Personal history of pulmonary embolism; Z68.44 Body mass index [BMI] 60.0-69.9, adult
CPT/HCPCS: 36415; 71275; 73030; 80048; 80053; 80061; 80307; 83735; 83880; 84100; 84443; 84484; 85025; 85651; 93005; 93306; 96372; 99285; G0378; J1650; Q9956; Q9967; U0003; G0379; C8929